=== PATIENT | female | born 1970 | race African-American/Black ===

== ENCOUNTER 2017-03-10 06:08 | Inpatient (IN) | payer MEDICARE, MEDICAID ==
[~2017-03-10] VITALS: Ht 180.3 cm; Wt 63.5 kg
[2017-03-10 09:16] LABS: BASOPHILS % 0.9 % (0.0-2.0); EOSINOPHILS % 2.7 % (0.0-5.0); HEMATOCRIT. 40.2 % (36.0-48.0); HEMOGLOBIN. 12.9 g/dL (12.0-16.0); LYMPHOCYTES % 24.6 % (20.0-50.0); MEAN CORPUSCULAR VOLUME 99.7 fL (81.0-99.0); MEAN PLATELET VOLUME 8.9 fl (7.4-10.4); MONOCYTES % 5.2 % (2.0-8.0); NEUTROPHILS % 66.6 % (40.0-76.0); PLATELET 335 x1000/uL (130-400); RED BLOOD CELL COUNT 4.03 mill/uL (4.2-5.4); RED CELL DISTRIBUTION WIDTH 19.7 % (11.6-14.6)
[2017-03-10 09:22] LABS: CHLORIDE 98 mEq/L (98-107)
[2017-03-10 09:25] LABS: INR 1.1; PARTIAL THROMBOPLASTIN TIME 24.2 sec (23.4-31.0); PROTHROMBIN TIME 11.3 sec (9.4-11.6)
[2017-03-10 09:30] LABS: CARBON DIOXIDE 29 mEq/L (21-32)
[2017-03-10] MEDS ORDERED: LIDOCAINE HCL 1% 20ML VIAL (Pyxis) INJ ONE (10:22)
[2017-03-10] MEDS ORDERED: SODIUM BICARBONATE 4% (2.4MEQ) 5ML VIAL IV ONE (10:23)
[2017-03-10] MEDS ORDERED: HYDROCODONE/ACETAMINOPHEN 5/325MG TABLET PO ONE (13:15)
[2017-03-10] MEDS ORDERED: DOCUSATE SODIUM 100MG CAPSULE PO PRN (18:00)
[2017-03-10] MEDS ORDERED: ONDANSETRON HCL 4MG/2ML VIAL IV PRN (18:00)
[2017-03-10] MEDS ORDERED: ACETAMINOPHEN 325MG TABLET PO PRN (18:00)
[2017-03-10] MEDS ORDERED: MAGNESIUM/ALUMINUM HYDROXIDE/SIMETHICONE 30ML UDC PO PRN (18:00)
[2017-03-10 18:43] VITALS: BP 188/90
[2017-03-10 20:00] VITALS: BP 187/77
[2017-03-10] MEDS ORDERED: ENOXAPARIN 30MG/0.3ML SYR SUBCUT SCH (20:00)
[2017-03-10 20:21] VITALS: BP 187/77
[2017-03-10] MEDS ORDERED: HYDR-4135 PO (20:30)
[2017-03-10] MEDS ORDERED: ASPI-864 PO (20:31)
[2017-03-10] MEDS ORDERED: METO25TA6 PO (20:32)
[2017-03-10] MEDS ORDERED: CHOL100046 PO (20:33)
[2017-03-10] MEDS ORDERED: DEXTROSE 50% WATER 50ML SYRINGE IV PRN (20:45)
[2017-03-10] MEDS: HYDRALAZINE HCL 50MG TABLET PO SCH (21:37)
[2017-03-10] MEDS: CLONIDINE 0.1MG TABLET PO PRN (21:37)
[2017-03-10] MEDS: BLOOD SUGAR DIAGNOSTIC STRIP TEST SCH (21:45)
[2017-03-10] MEDS: INSULIN LISPRO 100 UNITS/ML SUBCUT SCH (21:45)
[2017-03-11] MEDS: CLONIDINE 0.1MG TABLET PO PRN ×2 (03:27→12:13)
[2017-03-11] MEDS ORDERED: HYDROCODONE/ACETAMINOPHEN 5/325MG TABLET PO PRN (03:45)
[2017-03-11 06:32] LABS: BASOPHILS % 0.7 % (0.0-2.0); HEMATOCRIT. 33.6 % (36.0-48.0); HEMOGLOBIN. 10.9 g/dL (12.0-16.0); LYMPHOCYTES % 18.8 % (20.0-50.0); MEAN CORPUSCULAR HEMOGLOBIN 32.2 pg (28.0-32.0); MEAN CORPUSCULAR VOLUME 98.9 fL (81.0-99.0); MEAN PLATELET VOLUME 9.1 fl (7.4-10.4); NEUTROPHILS % 71.5 % (40.0-76.0); PLATELET 255 x1000/uL (130-400); RED CELL DISTRIBUTION WIDTH 19.5 % (11.6-14.6)
[2017-03-11] MEDS: HYDRALAZINE HCL 50MG TABLET PO SCH ×3 (06:41→20:45)
[2017-03-11] MEDS: BLOOD SUGAR DIAGNOSTIC STRIP TEST SCH ×4 (07:52→20:47)
[2017-03-11] MEDS: INSULIN LISPRO 100 UNITS/ML SUBCUT SCH ×4 (07:52→21:02)
[2017-03-11 08:00] VITALS: BP 147/74
[2017-03-11] MEDS: METOPROLOL TARTRATE 25MG TABLET PO SCH (09:37)
[2017-03-11] MEDS: AMLODIPINE 5MG TABLET PO SCH ×2 (09:37→20:40)
[2017-03-11 12:00] VITALS: BP 178/76
[2017-03-11 16:00] VITALS: BP 122/83
[2017-03-11 20:00] VITALS: BP 176/89
[2017-03-11 22:00] VITALS: BP 159/82
[2017-03-12] VITALS (21 sets, daily range): BP systolic 121–206; BP diastolic 61–96
[2017-03-12] MEDS: HYDRALAZINE HCL 50MG TABLET PO SCH ×3 (05:09→22:53)
[2017-03-12] MEDS: BLOOD SUGAR DIAGNOSTIC STRIP TEST SCH ×4 (05:47→21:00)
[2017-03-12] MEDS: INSULIN LISPRO 100 UNITS/ML SUBCUT SCH ×4 (08:03→21:22)
[2017-03-12] MEDS: METOPROLOL TARTRATE 25MG TABLET PO SCH (08:28)
[2017-03-12] MEDS: AMLODIPINE 5MG TABLET PO SCH ×2 (08:28→20:56)
[2017-03-12] MEDS ORDERED: LIDOCAINE HCL 1% 20ML VIAL (Pyxis) INJ ONE (08:35)
[2017-03-12] MEDS ORDERED: SODIUM BICARBONATE 4% (2.4MEQ) 5ML VIAL IV ONE (08:35)
[2017-03-12] MEDS ORDERED: HEPARIN 1000 UNITS/ML 10ML ONE (08:36)
[2017-03-12] MEDS ORDERED: CEFAZOLIN 1000MG PREMIX 50 ML IV ONE (08:55)
[2017-03-12] MEDS ORDERED: IOHEXOL-300 100 ML BOTTLE ONE (08:58)
[2017-03-12] MEDS: CHOLECALCIFEROL (D3) 1000 UNIT TABLET PO SCH (09:00)
[2017-03-12] MEDS ORDERED: FENTANYL CITRATE/PF 50MCG/ML 2ML VIAL IV NR (09:15)
[2017-03-12] MEDS ORDERED: MIDAZOLAM HCL 5 MG/5 ML VIAL IV NR (09:20)
[2017-03-12] MEDS ORDERED: FENTANYL CITRATE/PF 50MCG/ML 2ML VIAL ONE (09:23)
[2017-03-12] MEDS ORDERED: MIDAZOLAM HCL 2 MG/2 ML VIAL ONE (09:23)
[2017-03-12] MEDS ORDERED: CEFAZOLIN 1000MG PREMIX 50 ML IV SCH (10:15)
[2017-03-12] MEDS ORDERED: CEFAZOLIN 1000MG PREMIX 50 ML IV NR (10:15)
[2017-03-13] VITALS: BP 156/75
[2017-03-13 04:00] VITALS: BP 156/71
[2017-03-13] MEDS: BLOOD SUGAR DIAGNOSTIC STRIP TEST SCH ×2 (06:05→12:40)
[2017-03-13] MEDS: HYDRALAZINE HCL 50MG TABLET PO SCH ×2 (06:05→15:00)
[2017-03-13 06:33] LABS: EOSINOPHILS % 2.7 % (0.0-5.0); HEMATOCRIT. 37.2 % (36.0-48.0); HEMOGLOBIN. 12.4 g/dL (12.0-16.0); LYMPHOCYTES % 25.3 % (20.0-50.0); MEAN CORPUSCULAR HEMOGLOBIN 33.1 pg (28.0-32.0); MEAN CORPUSCULAR VOLUME 98.9 fL (81.0-99.0); MEAN PLATELET VOLUME 9.2 fl (7.4-10.4); MONOCYTES % 8.9 % (2.0-8.0); NEUTROPHILS % 62.1 % (40.0-76.0); PLATELET 189 x1000/uL (130-400); RED BLOOD CELL COUNT 3.76 mill/uL (4.2-5.4); RED CELL DISTRIBUTION WIDTH 18.5 % (11.6-14.6)
[2017-03-13 08:00] VITALS: BP 190/77
[2017-03-13] MEDS: METOPROLOL TARTRATE 25MG TABLET PO SCH (08:18)
[2017-03-13] MEDS: AMLODIPINE 5MG TABLET PO SCH (08:19)
[2017-03-13] MEDS: CHOLECALCIFEROL (D3) 1000 UNIT TABLET PO SCH (09:36)
[2017-03-13] MEDS: INSULIN LISPRO 100 UNITS/ML SUBCUT SCH ×2 (09:37→13:10)
[2017-03-13 12:00] VITALS: BP 191/100
[2017-03-13 14:18] VITALS: BP 158/72
[2017-03-13 16:00] VITALS: BP 158/70
== END 2017-03-13 17:30 | disposition home or self-care (01) | DRG 252 ==
LOC: ER 06:08 → 7WST 10:17 → ENRESERV 16:28 → SUPCPDRO 17:42
PROVIDERS: ADMIT Internal Medicine Nephrology; ATTEND Internal Medicine Nephrology
PROC: 02HV33Z Insertion of Infusion Device into Superior Vena Cava, Percutaneous Approach (ICD-10-PCS; principal; 2017-03-10)
PROC: B5181ZA Fluoroscopy of Superior Vena Cava using Low Osmolar Contrast, Guidance (ICD-10-PCS; 2017-03-10)
PROC: 5A1D70Z Performance of Urinary Filtration, Intermittent, Less than 6 Hours Per Day (ICD-10-PCS; 2017-03-10)
PROC: 5A1D70Z Performance of Urinary Filtration, Intermittent, Less than 6 Hours Per Day (ICD-10-PCS; 2017-03-12)
PROC: 03C83ZZ Extirpation of Matter from Left Brachial Artery, Percutaneous Approach (ICD-10-PCS; 2017-03-12)
PROC: 03783ZZ Dilation of Left Brachial Artery, Percutaneous Approach (ICD-10-PCS; 2017-03-12)
PROC: 5A1D70Z Performance of Urinary Filtration, Intermittent, Less than 6 Hours Per Day (ICD-10-PCS; 2017-03-13)
DX: T82.868A Thrombosis due to vascular prosthetic devices, implants and grafts, initial encounter (principal); N18.6 End stage renal disease; E11.22 Type 2 diabetes mellitus with diabetic chronic kidney disease; I12.0 Hypertensive chronic kidney disease with stage 5 chronic kidney disease or end stage renal disease; Y83.2 Surgical operation with anastomosis, bypass or graft as the cause of abnormal reaction of the patient, or of later complication, without mention of misadventure at the time of the procedure; E87.5 Hyperkalemia; E11.65 Type 2 diabetes mellitus with hyperglycemia; Z88.8 Allergy status to other drugs, medicaments and biological substances; Z99.2 Dependence on renal dialysis; Z98.891 History of uterine scar from previous surgery; Y92.89 Other specified places as the place of occurrence of the external cause
CPT/HCPCS: 36415; 36556; 36905; 76937; 77001; 80048; 80053; 82962; 85025; 85610; 85730; 93005; 99285; C1725; C1752; C1769; C1887; C2630; J0690; J1642; J1644; J1650; J1815; J2250; J3010; J3490; J7030; L8514; Q9967

== ENCOUNTER 2017-06-18 08:44 | Emergency (ER) | payer MEDICARE, MEDICAID ==
[~2017-06-18] VITALS: Ht 180.3 cm; Wt 73.1 kg
[2017-06-18] VITALS (18 sets, daily range): BP systolic 116–191; BP diastolic 67–98
[~2017-06-18 08:44] MED LIST: ASPI-864 PO; CHOL100046 PO; HYDR-4135 PO; METO25TA6 PO
[2017-06-18 09:55] LABS: EOSINOPHILS % 2.7 % (0.0-5.0); HEMATOCRIT. 32.8 % (36.0-48.0); HEMOGLOBIN. 11.1 g/dL (12.0-16.0); LYMPHOCYTES % 27.2 % (20.0-50.0); MEAN CORPUSCULAR HEMOGLOBIN 33.1 pg (28.0-32.0); MEAN PLATELET VOLUME 8.8 fl (7.4-10.4); MONOCYTES % 7.3 % (2.0-8.0); NEUTROPHILS % 61.8 % (40.0-76.0); PLATELET 294 x1000/uL (130-400); RED BLOOD CELL COUNT 3.35 mill/uL (4.2-5.4); RED CELL DISTRIBUTION WIDTH 16.5 % (11.6-14.6)
[2017-06-18 10:00] LABS: INR 1.1; PARTIAL THROMBOPLASTIN TIME 22.4 sec (23.4-31.0); PROTHROMBIN TIME 11.4 sec (9.4-11.6)
[2017-06-18 10:06] LABS: PHOSPHORUS 2.7 mg/dL (2.5-4.9)
[2017-06-18] MEDS ORDERED: CEFAZOLIN 1000MG PREMIX 50 ML IV ONE ×2 (10:15→10:27)
[2017-06-18] MEDS ORDERED: LIDOCAINE HCL/PF 1% 10 MG/ML 5ML VIAL ONE (10:26)
[2017-06-18] MEDS ORDERED: HEPARIN 1000 UNITS/ML 10ML ONE (10:26)
[2017-06-18] MEDS ORDERED: SODIUM BICARBONATE 4% (2.4MEQ) 5ML VIAL IV ONE (10:26)
[2017-06-18] MEDS ORDERED: FENTANYL CITRATE/PF 50MCG/ML 2ML VIAL ONE (10:27)
[2017-06-18] MEDS ORDERED: IOHEXOL-300 100 ML BOTTLE ONE (10:45)
[2017-06-18] MEDS ORDERED: MIDAZOLAM HCL 2 MG/2 ML VIAL ONE (10:55)
[2017-06-18] MEDS ORDERED: HEPARIN 5000 UNITS/ML VIAL IV ONE (11:15)
[2017-06-18] MEDS ORDERED: HEPARIN 1000 UNITS/ML 10ML IV ONE (11:15)
[2017-06-18] MEDS ORDERED: ONDANSETRON HCL 4MG/2ML VIAL ONE (11:27)
[2017-06-18] MEDS ORDERED: FENTANYL CITRATE/PF 50MCG/ML 2ML VIAL IV ONE (11:30)
[2017-06-18] MEDS ORDERED: ONDANSETRON HCL 4MG/2ML VIAL IV ONE (11:30)
== END 2017-06-18 12:27 | disposition home or self-care (01) ==
LOC: ER 08:48
DX: T82.858A Stenosis of other vascular prosthetic devices, implants and grafts, initial encounter (principal); N17.9 Acute kidney failure, unspecified; E11.22 Type 2 diabetes mellitus with diabetic chronic kidney disease; E11.65 Type 2 diabetes mellitus with hyperglycemia; I12.0 Hypertensive chronic kidney disease with stage 5 chronic kidney disease or end stage renal disease; D63.1 Anemia in chronic kidney disease; R00.1 Bradycardia, unspecified; N18.6 End stage renal disease; Z79.82 Long term (current) use of aspirin; Z99.2 Dependence on renal dialysis; Z79.84 Long term (current) use of oral hypoglycemic drugs; Z98.890 Other specified postprocedural states; Y84.1 Kidney dialysis as the cause of abnormal reaction of the patient, or of later complication, without mention of misadventure at the time of the procedure; Y92.018 Other place in single-family (private) house as the place of occurrence of the external cause
CPT/HCPCS: 36415; 36905; 71045; 80048; 81025; 82962; 83735; 84100; 85025; 85610; 85730; 93005; 96365; 96375; 99285; C1725; C1766; C1769; C2630; J0690; J1644; J2405; J3010; J3490; J7040; Q9967; J2250

== ENCOUNTER 2017-07-04 14:10 | Emergency (ER) | payer MEDICARE, MEDICAID ==
[~2017-07-04] VITALS: Ht 180.3 cm; Wt 71.0 kg
[2017-07-04 14:31] VITALS: BP 125/45
== END 2017-07-04 17:43 | disposition home or self-care (01) ==
LOC: ER 14:25
DX: Z48.02 Encounter for removal of sutures (principal); I12.0 Hypertensive chronic kidney disease with stage 5 chronic kidney disease or end stage renal disease; E11.22 Type 2 diabetes mellitus with diabetic chronic kidney disease; N18.6 End stage renal disease; Z99.2 Dependence on renal dialysis; Z79.82 Long term (current) use of aspirin
CPT/HCPCS: 99281

== ENCOUNTER → 2017-09-18 | Outpatient (CLI) | payer MEDICARE, MEDICAID | END | disposition home or self-care (01) | LOC: MAMMO 09:43 | PROVIDERS: ATTEND Internal Medicine Nephrology | DX: Z12.31 Encounter for screening mammogram for malignant neoplasm of breast (principal) | CPT/HCPCS: 77067 ==

== ENCOUNTER 2017-10-13 13:50 | Emergency (ER) | payer MEDICARE, MEDICAID ==
[~2017-10-13] VITALS: Ht 180.3 cm; Wt 70.0 kg
[2017-10-13] MEDS ORDERED: HYDROCODONE/ACETAMINOPHEN 5/325MG TABLET PO ONE (16:30)
[2017-10-13] MEDS ORDERED: AMOXICILLIN/POTASSIUM CLAVULANATE 875/125MG TAB PO ONE (16:30)
[2017-10-13] MEDS ORDERED: IBUPROFEN 600MG TABLET PO ONE (16:30)
[2017-10-13 17:51] VITALS: BP 147/70
== END 2017-10-13 17:53 | disposition home or self-care (01) ==
LOC: ER 13:50
DX: K04.7 Periapical abscess without sinus (principal); R68.84 Jaw pain; E11.22 Type 2 diabetes mellitus with diabetic chronic kidney disease; N18.6 End stage renal disease; Z99.2 Dependence on renal dialysis; Z88.8 Allergy status to other drugs, medicaments and biological substances
CPT/HCPCS: 99284

== ENCOUNTER 2017-11-19 08:25 | Emergency (ER) | payer MEDICARE, MEDICAID ==
[~2017-11-19] VITALS: Ht 180.3 cm; Wt 74.3 kg
[2017-11-19 09:36] VITALS: BP 161/46
== END 2017-11-19 14:30 | disposition left against medical advice (07) ==
LOC: ER 13:02
DX: Z53.21 Procedure and treatment not carried out due to patient leaving prior to being seen by health care provider (principal)

== ENCOUNTER 2018-03-28 04:07 | Inpatient (IN) | payer MEDICARE, MEDICAID ==
[~2018-03-28] VITALS: Ht 180.3 cm; Wt 77.1 kg
[2018-03-28] MEDS ORDERED: ONDANSETRON HCL 4MG/2ML INJ IV STA (05:29)
[2018-03-28 06:27] LABS: CHLORIDE 95 mEq/L (98-107)
[2018-03-28 06:39] LABS: BASOPHILS % 0.4 % (0.0-2.0); EOSINOPHILS % 1.4 % (0.0-5.0); HEMATOCRIT. 26.1 % (36.0-48.0); LYMPHOCYTES % 15.5 % (20.0-50.0); MEAN CORPUSCULAR HEMOGLOBIN 33.5 pg (28.0-32.0); MEAN PLATELET VOLUME 10.2 fl (7.4-10.4); MONOCYTES % 6.4 % (2.0-8.0); NEUTROPHILS % 76.3 % (40.0-76.0); PLATELET 343 x1000/uL (130-400); RED BLOOD CELL COUNT 2.69 mill/uL (4.2-5.4); RED CELL DISTRIBUTION WIDTH 19.5 % (11.6-14.6)
[2018-03-28 07:11] LABS: HCG SCREEN NEGATIVE
[2018-03-28] MEDS ORDERED: FUROSEMIDE 100MG/10ML VIAL IV STA (07:21)
[2018-03-28] MEDS ORDERED: INSULIN REGULAR (HUMULIN R) 300UNITS/3ML IV ONE (07:30)
[2018-03-28] MEDS ORDERED: DEXTROSE 50% WATER 50ML SYRINGE IV ONE (07:30)
[2018-03-28] MEDS ORDERED: ALBUTEROL (0.083%) 2.5MG/3ML NEB HHN ONE (07:30)
[2018-03-28] MEDS ORDERED: SODIUM BICARBONATE 8.4% 1 MEQ/ML 50ML SYR IV ONE (07:30)
[2018-03-28] MEDS ORDERED: ENOXAPARIN 40MG/0.4ML SYR SUBCUT SCH (09:00)
[2018-03-28] MEDS ORDERED: DOCUSATE SODIUM 100MG CAPSULE PO PRN (09:00)
[2018-03-28] MEDS ORDERED: HYDROCODONE/ACETAMINOPHEN 5/325MG TABLET PO PRN (09:00)
[2018-03-28] MEDS ORDERED: NA PHOS,M-B/NA PHOS,DI-BA ENEMA 118ML PR PRN (09:00)
[2018-03-28] MEDS ORDERED: ASPIRIN 81MG EC TABLET PO SCH (09:00)
[2018-03-28] MEDS ORDERED: MAGNESIUM/ALUMINUM HYDROXIDE/SIMETHICONE 30ML UDC PO PRN (09:00)
[2018-03-28] MEDS ORDERED: IPRATROPIUM/ALBUTEROL 0.5-3(2.5)MG/3ML NEB INH PRN (09:00)
[2018-03-28] MEDS ORDERED: ACETAMINOPHEN 325MG TABLET PO PRN (09:00)
[2018-03-28] MEDS ORDERED: DIPHENHYDRAMINE 50MG/ML VIAL IV PRN (09:00)
[2018-03-28] MEDS ORDERED: MORPHINE SULFATE 2 MG/ML CPJ (NOT FOR IM USE) IV PRN (09:00)
[2018-03-28] MEDS ORDERED: CLONIDINE 0.1MG TABLET PO PRN (09:00)
[2018-03-28] MEDS ORDERED: GUAIFENESIN 200MG/10ML SUGAR FREE UDC PO PRN (09:00)
[2018-03-28] MEDS ORDERED: LORAZEPAM 2MG/ML CPJ IV PRN (09:00)
[2018-03-28] MEDS ORDERED: HYDRALAZINE HCL 50MG TABLET PO NR (17:15)
[2018-03-28] MEDS ORDERED: AMLODIPINE 5MG TABLET PO NR (17:15)
[2018-03-28] MEDS ORDERED: METOPROLOL TARTRATE 25MG TABLET PO NR (17:15)
[2018-03-28] MEDS ORDERED: LOSA100T14 PO (17:34)
[2018-03-28 19:35] LABS: CHLORIDE 94 mEq/L (98-107)
[2018-03-28 21:00] VITALS: BP 181/55
[2018-03-28] MEDS ORDERED: HYDRALAZINE HCL 50MG TABLET PO SCH (22:00)
[2018-03-28] MEDS ORDERED: DEXTROSE 50% WATER 50ML SYRINGE IV PRN (22:15)
[2018-03-28] MEDS: ENOXAPARIN 30MG/0.3ML SYR SUBCUT SCH (22:36)
[2018-03-28] MEDS: HYDRALAZINE HCL 50MG TABLET PO SCH (22:36)
[2018-03-28] MEDS: ASPIRIN 81MG EC TABLET PO SCH (22:36)
[2018-03-28] MEDS ORDERED: FERR325T6 MT (22:53)
[2018-03-28] MEDS ORDERED: INSULIN R SUBCUT (22:53)
[2018-03-28] MEDS ORDERED: CALCIUM ACETATE MT (22:53)
[2018-03-28] MEDS ORDERED: NIFE90TA34 MT (22:53)
[2018-03-29 00:29] VITALS: BP 150/52
[2018-03-29] MEDS ORDERED: MORPHINE SULFATE 4 MG/ML CPJ (NOT FOR IM USE) IV PRN (01:00)
[2018-03-29 04:00] VITALS: BP 126/66
[2018-03-29] MEDS: HYDRALAZINE HCL 50MG TABLET PO SCH ×2 (05:32→21:31)
[2018-03-29] MEDS: BLOOD SUGAR DIAGNOSTIC STRIP TEST SCH ×4 (06:24→20:12)
[2018-03-29] MEDS: INSULIN LISPRO 100 UNITS/ML SUBCUT SCH ×4 (07:50→21:00)
[2018-03-29 08:00] VITALS: BP 165/59
[2018-03-29] MEDS ORDERED: AMLODIPINE 5MG TABLET PO SCH ×2 (09:00)
[2018-03-29] MEDS ORDERED: METOPROLOL TARTRATE 25MG TABLET PO SCH (09:00)
[2018-03-29] MEDS: ASPIRIN 81MG EC TABLET PO SCH (09:53)
[2018-03-29] MEDS: METOPROLOL TARTRATE 25MG TABLET PO SCH ×2 (09:53→20:12)
[2018-03-29 11:55] VITALS: BP 144/48
[2018-03-29 15:58] VITALS: BP 157/70
[2018-03-29] MEDS: NIFEDIPINE XL 90MG TAB PO SCH (17:30)
[2018-03-29 20:00] VITALS: BP 160/63
[2018-03-29] MEDS: ONDANSETRON HCL 4MG/2ML INJ IV PRN (20:11)
[2018-03-29] MEDS: ENOXAPARIN 30MG/0.3ML SYR SUBCUT SCH (21:31)
[2018-03-30 00:07] VITALS: BP 144/57
[2018-03-30 06:00] VITALS: BP 129/56
[2018-03-30] MEDS: HYDRALAZINE HCL 50MG TABLET PO SCH ×3 (06:10→21:30)
[2018-03-30] MEDS: BLOOD SUGAR DIAGNOSTIC STRIP TEST SCH ×4 (06:28→21:20)
[2018-03-30 06:59] LABS: BASOPHILS % 1.3 % (0.0-2.0); EOSINOPHILS % 4.2 % (0.0-5.0); HEMATOCRIT. 27.6 % (36.0-48.0); HEMOGLOBIN. 9.3 g/dL (12.0-16.0); LYMPHOCYTES % 32.2 % (20.0-50.0); MEAN CORPUSCULAR HEMOGLOBIN 33.7 pg (28.0-32.0); MEAN CORPUSCULAR VOLUME 99.6 fL (81.0-99.0); MEAN PLATELET VOLUME 9.5 fl (7.4-10.4); MONOCYTES % 7.4 % (2.0-8.0); NEUTROPHILS % 54.9 % (40.0-76.0); PLATELET 301 x1000/uL (130-400); RED BLOOD CELL COUNT 2.77 mill/uL (4.2-5.4); RED CELL DISTRIBUTION WIDTH 17.1 % (11.6-14.6)
[2018-03-30 08:00] VITALS: BP 158/70
[2018-03-30 08:24] LABS: PHOSPHORUS 4.6 mg/dL (2.5-4.9)
[2018-03-30 12:00] VITALS: BP 112/66
[2018-03-30] MEDS ORDERED: ONDANSETRON HCL 4MG/2ML INJ IV PRN (12:00)
[2018-03-30] MEDS: ONDANSETRON HCL 4MG/2ML INJ IV PRN (12:35)
[2018-03-30] MEDS: INSULIN LISPRO 100 UNITS/ML SUBCUT SCH ×4 (12:36→21:57)
[2018-03-30 16:00] VITALS: BP 154/63
[2018-03-30] MEDS: METOPROLOL TARTRATE 25MG TABLET PO SCH ×2 (16:39→21:00)
[2018-03-30] MEDS: LOSARTAN POTASSIUM 100 MG TABLET PO SCH (16:39)
[2018-03-30] MEDS: ASPIRIN 81MG EC TABLET PO SCH (16:40)
[2018-03-30] MEDS: NIFEDIPINE XL 90MG TAB PO SCH (16:40)
[2018-03-30] MEDS ORDERED: FLUCONAZOLE 150MG TABLET PO NR (17:00)
[2018-03-30 20:00] VITALS: BP 99/62
[2018-03-30] MEDS: ENOXAPARIN 30MG/0.3ML SYR SUBCUT SCH (21:58)
[2018-03-31] VITALS (7 sets, daily range): BP systolic 109–151; BP diastolic 49–80
[2018-03-31] MEDS: BLOOD SUGAR DIAGNOSTIC STRIP TEST SCH ×3 (05:55→21:00)
[2018-03-31] MEDS: HYDRALAZINE HCL 50MG TABLET PO SCH ×3 (05:58→23:02)
[2018-03-31 07:21] LABS: BASOPHILS % 1.6 % (0.0-2.0); EOSINOPHILS % 3.7 % (0.0-5.0); HEMATOCRIT. 24.7 % (36.0-48.0); HEMOGLOBIN. 8.1 g/dL (12.0-16.0); LYMPHOCYTES % 23.3 % (20.0-50.0); MEAN CORPUSCULAR HEMOGLOBIN 33.2 pg (28.0-32.0); MEAN CORPUSCULAR VOLUME 100.8 fL (81.0-99.0); MEAN PLATELET VOLUME 9.4 fl (7.4-10.4); MONOCYTES % 10.1 % (2.0-8.0); NEUTROPHILS % 61.3 % (40.0-76.0); PLATELET 243 x1000/uL (130-400); RED BLOOD CELL COUNT 2.45 mill/uL (4.2-5.4)
[2018-03-31] MEDS: INSULIN LISPRO 100 UNITS/ML SUBCUT SCH ×3 (07:50→21:00)
[2018-03-31 07:58] LABS: CHLORIDE 104 mEq/L (98-107)
[2018-03-31] MEDS: ASPIRIN 81MG EC TABLET PO SCH (09:51)
[2018-03-31] MEDS: NIFEDIPINE XL 90MG TAB PO SCH (09:51)
[2018-03-31] MEDS: LOSARTAN POTASSIUM 100 MG TABLET PO SCH (09:51)
[2018-03-31] MEDS: METOPROLOL TARTRATE 25MG TABLET PO SCH ×2 (09:51→23:02)
[2018-03-31] MEDS: ENOXAPARIN 30MG/0.3ML SYR SUBCUT SCH (23:03)
[2018-04-01] VITALS: BP 155/61
[2018-04-01 04:56] LABS: *BARBITURATES SCREEN URINE NEGATIVE (NEGATIVE); *BENZODIAZEPINES SCREEN URINE NEGATIVE (NEGATIVE); *COCAINE SCREEN URINE NEGATIVE (NEGATIVE)
[2018-04-01 04:57] LABS: *AMPHETAMINES SCREEN URINE NEGATIVE (NEGATIVE); CANNABINOID URINE SCREEN NEGATIVE (NEGATIVE); METHADONE URINE SCREEN NEGATIVE (NEGATIVE); PHENCYCLIDINE URINE SCREEN NEGATIVE (NEGATIVE)
[2018-04-01 05:27] LABS: OPIATES URINE SCREEN PRESUMTIVE POSITIVE (NEGATIVE)
[2018-04-01] MEDS: HYDRALAZINE HCL 50MG TABLET PO SCH ×2 (06:35→14:47)
[2018-04-01] MEDS: BLOOD SUGAR DIAGNOSTIC STRIP TEST SCH ×2 (06:35→13:11)
[2018-04-01] MEDS: INSULIN LISPRO 100 UNITS/ML SUBCUT SCH ×2 (07:50→13:20)
[2018-04-01 08:00] VITALS: BP 129/69
[2018-04-01 09:29] LABS: BASOPHILS % 1.5 % (0.0-2.0); EOSINOPHILS % 3.8 % (0.0-5.0); HEMATOCRIT. 28.4 % (36.0-48.0); HEMOGLOBIN. 9.3 g/dL (12.0-16.0); LYMPHOCYTES % 26.9 % (20.0-50.0); MEAN CORPUSCULAR HEMOGLOBIN 33.2 pg (28.0-32.0); MEAN CORPUSCULAR VOLUME 101.5 fL (81.0-99.0); MONOCYTES % 6.3 % (2.0-8.0); NEUTROPHILS % 61.5 % (40.0-76.0); PLATELET 299 x1000/uL (130-400); RED CELL DISTRIBUTION WIDTH 17.1 % (11.6-14.6)
[2018-04-01] MEDS: LOSARTAN POTASSIUM 100 MG TABLET PO SCH (09:56)
[2018-04-01] MEDS: NIFEDIPINE XL 90MG TAB PO SCH (09:56)
[2018-04-01] MEDS: ASPIRIN 81MG EC TABLET PO SCH (09:56)
[2018-04-01] MEDS: METOPROLOL TARTRATE 25MG TABLET PO SCH (09:57)
[2018-04-01 12:00] VITALS: BP 156/61
[2018-04-01 13:35] VITALS: BP 156/61
[2018-04-01 16:00] VITALS: BP 158/66
[2018-04-02] MEDS ORDERED: EPOETIN ALFA 4000UNITS/ML VIAL SUBCUT SCH (21:00)
== END 2018-04-01 17:15 | disposition home or self-care (01) | DRG 640 ==
LOC: ER 04:07 → 6WST 07:53 → EDBEDREQTM 07:56 → EDBEDREQ 07:56 → ENRESERV 20:04 → ER 20:52
PROVIDERS: ADMIT Internal Medicine; ATTEND Internal Medicine
PROC: 5A1D70Z Performance of Urinary Filtration, Intermittent, Less than 6 Hours Per Day (ICD-10-PCS; principal; 2018-03-31)
DX: E87.5 Hyperkalemia (principal); N18.6 End stage renal disease; I13.2 Hypertensive heart and chronic kidney disease with heart failure and with stage 5 chronic kidney disease, or end stage renal disease; K31.84 Gastroparesis; E87.1 Hypo-osmolality and hyponatremia; E11.43 Type 2 diabetes mellitus with diabetic autonomic (poly)neuropathy; Z99.2 Dependence on renal dialysis; D63.1 Anemia in chronic kidney disease; E11.22 Type 2 diabetes mellitus with diabetic chronic kidney disease; I25.10 Atherosclerotic heart disease of native coronary artery without angina pectoris; I50.9 Heart failure, unspecified; Z79.4 Long term (current) use of insulin; Z79.82 Long term (current) use of aspirin; Z82.49 Family history of ischemic heart disease and other diseases of the circulatory system; Z98.891 History of uterine scar from previous surgery; Z79.84 Long term (current) use of oral hypoglycemic drugs
CPT/HCPCS: 36415; 71045; 80048; 80061; 80305; 82962; 83036; 83605; 83735; 83880; 84100; 84484; 84703; 93005; 93306; 96374; 96375; 99285; J1650; J1815; J1940; J2405; J3490

== ENCOUNTER 2018-06-18 07:57 | Inpatient (IN) | payer MEDICARE, MEDICAID ==
[~2018-06-18] VITALS: Ht 180.3 cm; Wt 80.8 kg
[~2018-06-18 07:57] MED LIST changes: +CALCIUM ACETATE MT; +FERR325T6 MT; +INSULIN R SUBCUT; +LOSA100T14 PO; +NIFE90TA34 MT
[2018-06-18] MEDS ORDERED: HYDRALAZINE 20MG/ML VIAL IV ONE ×2 (08:30→13:30)
[2018-06-18 08:51] LABS: BASOPHILS % 0.8 % (0.0-2.0); EOSINOPHILS % 0.3 % (0.0-5.0); HEMATOCRIT. 34.5 % (36.0-48.0); HEMOGLOBIN. 11.4 g/dL (12.0-16.0); LYMPHOCYTES % 14.4 % (20.0-50.0); MEAN CORPUSCULAR HEMOGLOBIN 32.4 pg (28.0-32.0); MEAN CORPUSCULAR VOLUME 97.9 fL (81.0-99.0); MEAN PLATELET VOLUME 9.6 fl (7.4-10.4); MONOCYTES % 4.9 % (2.0-8.0); NEUTROPHILS % 79.6 % (40.0-76.0); PLATELET 259 x1000/uL (130-400); RED BLOOD CELL COUNT 3.52 mill/uL (4.2-5.4)
[2018-06-18 08:57] LABS: CHLORIDE 104 mEq/L (98-107)
[2018-06-18 08:58] LABS: INR 1.1; PROTHROMBIN TIME 11.8 sec (9.6-11.0)
[2018-06-18] MEDS ORDERED: IBUPROFEN 600MG TABLET PO PRN (13:30)
[2018-06-18] MEDS ORDERED: DOCUSATE SODIUM 100MG CAPSULE PO PRN (15:00)
[2018-06-18] MEDS ORDERED: DIPHENHYDRAMINE 50MG/ML VIAL IV PRN (15:00)
[2018-06-18] MEDS ORDERED: GUAIFENESIN 200MG/10ML SUGAR FREE UDC PO PRN (15:00)
[2018-06-18] MEDS ORDERED: ACETAMINOPHEN 325MG TABLET PO PRN (15:00)
[2018-06-18] MEDS ORDERED: HYDROCODONE/ACETAMINOPHEN 5/325MG TABLET PO PRN (15:00)
[2018-06-18 15:55] LABS: CLARITY URINE CLEAR (CLEAR); COLOR URINE YELLOW (YELLOW); KETONES URINE NEGATIVE (NEGATIVE); LEUKOCYTE ESTERASE URINE NEGATIVE (NEGATIVE); NITRITE URINE NEGATIVE (NEGATIVE); OCCULT BLOOD URINE TRACE (NEGATIVE); PH URINE 7.5 (4.5-8.0); PROTEIN URINE 3+ (NEGATIVE); SPECIFIC GRAVITY URINE 1.013 (1.005-1.030); UROBILINOGEN URINE 0.2 E.U./dL (0.2-1.0)
[2018-06-18] MEDS ORDERED: HYDRALAZINE 20MG/ML VIAL IV NR (18:43)
[2018-06-18] MEDS: AMLODIPINE 10MG TABLET PO SCH (20:30)
[2018-06-18] MEDS: ONDANSETRON HCL 4MG/2ML INJ IV PRN (20:40)
[2018-06-18] MEDS: HYDRALAZINE HCL 50MG TABLET PO SCH (22:20)
[2018-06-19] VITALS (12 sets, daily range): BP systolic 152–211; BP diastolic 64–105
[2018-06-19] MEDS ORDERED: INSU100V3 SUBCUT (01:15)
[2018-06-19] MEDS: ONDANSETRON HCL 4MG/2ML INJ IV PRN ×3 (01:26→20:12)
[2018-06-19] MEDS ORDERED: DEXTROSE 50% WATER 50ML SYRINGE IV PRN (01:45)
[2018-06-19] MEDS: BLOOD SUGAR DIAGNOSTIC STRIP TEST SCH ×4 (07:40→20:22)
[2018-06-19] MEDS: AMLODIPINE 10MG TABLET PO SCH (08:34)
[2018-06-19] MEDS: HYDRALAZINE HCL 50MG TABLET PO SCH (08:34)
[2018-06-19] MEDS: INSULIN LISPRO 100 UNITS/ML SUBCUT SCH ×4 (08:39→20:22)
[2018-06-19 09:23] LABS: BASOPHILS % 0.7 % (0.0-2.0); EOSINOPHILS % 0.6 % (0.0-5.0); HEMATOCRIT. 31.8 % (36.0-48.0); HEMOGLOBIN. 10.7 g/dL (12.0-16.0); LYMPHOCYTES % 11.5 % (20.0-50.0); MEAN CORPUSCULAR HEMOGLOBIN 32.8 pg (28.0-32.0); MEAN CORPUSCULAR VOLUME 97.4 fL (81.0-99.0); MEAN PLATELET VOLUME 9.7 fl (7.4-10.4); MONOCYTES % 5.3 % (2.0-8.0); NEUTROPHILS % 81.9 % (40.0-76.0); PLATELET 226 x1000/uL (130-400); RED BLOOD CELL COUNT 3.26 mill/uL (4.2-5.4); RED CELL DISTRIBUTION WIDTH 18.3 % (11.6-14.6)
[2018-06-19 09:39] LABS: CHLORIDE 103 mEq/L (98-107)
[2018-06-19] MEDS: LABETALOL HCL 100MG TABLET PO SCH (20:09)
[2018-06-19] MEDS ORDERED: HYDRALAZINE HCL 100MG TABLET PO SCH (21:00)
[2018-06-19] MEDS: HYDRALAZINE HCL 100MG TABLET PO SCH (21:56)
[2018-06-20] VITALS (7 sets, daily range): BP systolic 146–168; BP diastolic 64–81
[2018-06-20] MEDS: CLONIDINE 0.2MG TABLET PO PRN ×2 (00:01→13:47)
[2018-06-20] MEDS: BLOOD SUGAR DIAGNOSTIC STRIP TEST SCH ×4 (06:07→22:59)
[2018-06-20] MEDS: ONDANSETRON HCL 4MG/2ML INJ IV PRN ×3 (06:58→13:30)
[2018-06-20] MEDS: HYDRALAZINE HCL 100MG TABLET PO SCH ×3 (06:59→23:00)
[2018-06-20] MEDS: INSULIN LISPRO 100 UNITS/ML SUBCUT SCH ×4 (07:01→17:38)
[2018-06-20] MEDS: AMLODIPINE 10MG TABLET PO SCH (08:43)
[2018-06-20] MEDS: LABETALOL HCL 100MG TABLET PO SCH ×2 (08:44→22:59)
== END 2018-06-21 06:35 | disposition home or self-care (01) | DRG 291 ==
LOC: ER 07:57 → 7WST 10:25 → EDBEDREQSVC 10:37 → EDBEDREQ 10:37 → ENRESERV 15:30
PROVIDERS: ADMIT Hospitalist; ATTEND Hospitalist
PROC: 5A1D70Z Performance of Urinary Filtration, Intermittent, Less than 6 Hours Per Day (ICD-10-PCS; principal; 2018-06-19)
PROC: 5A1D70Z Performance of Urinary Filtration, Intermittent, Less than 6 Hours Per Day (ICD-10-PCS; 2018-06-20)
DX: I13.2 Hypertensive heart and chronic kidney disease with heart failure and with stage 5 chronic kidney disease, or end stage renal disease (principal); I50.33 Acute on chronic diastolic (congestive) heart failure; N18.6 End stage renal disease; K29.00 Acute gastritis without bleeding; E11.22 Type 2 diabetes mellitus with diabetic chronic kidney disease; Z99.2 Dependence on renal dialysis; Z82.49 Family history of ischemic heart disease and other diseases of the circulatory system; Z88.8 Allergy status to other drugs, medicaments and biological substances; Z98.891 History of uterine scar from previous surgery; Z79.899 Other long term (current) drug therapy; Z79.4 Long term (current) use of insulin; Z79.82 Long term (current) use of aspirin
CPT/HCPCS: 36415; 71045; 82962; 83036; 83605; 83880; 84145; 84484; 87804; 93005; 93970; 96374; 99285; J0360; J1815; J2405

== ENCOUNTER → 2018-11-18 | Outpatient (CLI) | payer MEDICARE, MEDICAID ==
[~2018-11-18] MED LIST changes: -CALCIUM ACETATE MT; +INSU100V3 SUBCUT; -INSULIN R SUBCUT; -LOSA100T14 PO; +LOSA100T32 PO
== END | disposition home or self-care (01) ==
LOC: MAMMO 09:39
PROVIDERS: ATTEND Internal Medicine Nephrology
DX: Z12.31 Encounter for screening mammogram for malignant neoplasm of breast (principal)
CPT/HCPCS: 77067

== ENCOUNTER 2018-12-05 04:16 | Inpatient (IN) | payer MEDICARE, MEDICAID ==
[~2018-12-05] VITALS: Ht 180.3 cm; Wt 76.7 kg
[2018-12-05] MEDS ORDERED: MORPHINE SULFATE 4 MG/ML CPJ (NOT FOR IM USE) IV STA (04:48)
[2018-12-05] MEDS ORDERED: ONDANSETRON HCL 4MG/2ML INJ IV STA (04:48)
[2018-12-05 07:36] LABS: BASOPHILS % 0.6 % (0.0-2.0); CHLORIDE 103 mEq/L (98-107); EOSINOPHILS % 0.1 % (0.0-5.0); HEMOGLOBIN. 8.9 g/dL (12.0-16.0); LYMPHOCYTES % 7.2 % (20.0-50.0); MEAN CORPUSCULAR HEMOGLOBIN 33.5 pg (28.0-32.0); MEAN CORPUSCULAR VOLUME 98.1 fL (81.0-99.0); MEAN PLATELET VOLUME 9.8 fl (7.4-10.4); MONOCYTES % 9.3 % (2.0-8.0); NEUTROPHILS % 82.8 % (40.0-76.0); PLATELET 283 x1000/uL (130-400); RED BLOOD CELL COUNT 2.65 mill/uL (4.2-5.4); RED CELL DISTRIBUTION WIDTH 17.3 % (11.6-14.6)
[2018-12-05 07:39] LABS: HCG SCREEN NEGATIVE
[2018-12-05] MEDS ORDERED: CLONIDINE 0.1MG TABLET PO NR (08:24)
[2018-12-05] MEDS: METOPROLOL TARTRATE 50MG TABLET PO SCH ×2 (08:32→20:54)
[2018-12-05] MEDS ORDERED: ACETAMINOPHEN 325MG TABLET PO PRN (11:15)
[2018-12-05 11:30] VITALS: BP_SYST 186; BP_DIAS 75; BP_DIAS 87
[2018-12-05] MEDS ORDERED: DEXTROSE 50% WATER 50ML SYRINGE IV PRN (11:30)
[2018-12-05] MEDS: LOSARTAN POTASSIUM 100 MG TABLET PO SCH (11:31)
[2018-12-05] MEDS: NIFEDIPINE XL 60MG TAB PO SCH ×2 (11:31→20:53)
[2018-12-05] MEDS: ONDANSETRON HCL 4MG/2ML INJ IV PRN (11:32)
[2018-12-05] MEDS: BLOOD SUGAR DIAGNOSTIC STRIP TEST SCH ×3 (12:40→20:57)
[2018-12-05] MEDS: INSULIN LISPRO 100 UNITS/ML SUBCUT SCH ×3 (13:10→21:00)
[2018-12-05 16:00] VITALS: BP 177/91
[2018-12-05] MEDS ORDERED: HYDROCODONE/ACETAMINOPHEN 5/325MG TABLET PO PRN (18:00)
[2018-12-05] MEDS: CLONIDINE 0.1MG TABLET PO PRN (19:33)
[2018-12-05 20:00] VITALS: BP 168/89
[2018-12-05] MEDS: HYDRALAZINE HCL 50MG TABLET PO SCH (22:00)
[2018-12-05] MEDS ORDERED: MORPHINE SULFATE 2 MG/ML CPJ (NOT FOR IM USE) IV PRN (22:15)
[2018-12-05] MEDS: SIMETHICONE 80MG TABLET CHEW PO PRN (22:56)
[2018-12-06] VITALS (7 sets, daily range): BP systolic 140–197; BP diastolic 69–119
[2018-12-06] MEDS: ONDANSETRON HCL 4MG/2ML INJ IV PRN (06:45)
[2018-12-06] MEDS: HYDRALAZINE HCL 50MG TABLET PO SCH ×3 (07:08→21:20)
[2018-12-06] MEDS: BLOOD SUGAR DIAGNOSTIC STRIP TEST SCH ×4 (07:09→21:20)
[2018-12-06 07:28] LABS: BASOPHILS % 0.9 % (0.0-2.0); EOSINOPHILS % 2.1 % (0.0-5.0); HEMATOCRIT. 29.5 % (36.0-48.0); HEMOGLOBIN. 9.9 g/dL (12.0-16.0); LYMPHOCYTES % 21.3 % (20.0-50.0); MEAN CORPUSCULAR HEMOGLOBIN 33.2 pg (28.0-32.0); MEAN CORPUSCULAR VOLUME 98.7 fL (81.0-99.0); NEUTROPHILS % 66.7 % (40.0-76.0); PLATELET 329 x1000/uL (130-400); RED BLOOD CELL COUNT 2.99 mill/uL (4.2-5.4); RED CELL DISTRIBUTION WIDTH 17.3 % (11.6-14.6)
[2018-12-06] MEDS: INSULIN LISPRO 100 UNITS/ML SUBCUT SCH ×4 (08:10→21:38)
[2018-12-06] MEDS ORDERED: METOPROLOL TARTRATE 25MG TABLET PO SCH (09:00)
[2018-12-06] MEDS: ASPIRIN 81MG EC TABLET PO SCH (09:00)
[2018-12-06] MEDS: NIFEDIPINE XL 60MG TAB PO SCH ×2 (09:00→21:20)
[2018-12-06] MEDS: METOPROLOL TARTRATE 50MG TABLET PO SCH ×2 (09:00→21:19)
[2018-12-06] MEDS: LOSARTAN POTASSIUM 100 MG TABLET PO SCH (09:00)
[2018-12-06] MEDS: CLONIDINE 0.1MG TABLET PO PRN (12:20)
[2018-12-06] MEDS: SIMETHICONE 80MG TABLET CHEW PO PRN ×2 (21:10→21:19)
[2018-12-07] VITALS (7 sets, daily range): BP systolic 158–203; BP diastolic 61–116
[2018-12-07] MEDS: HYDRALAZINE HCL 50MG TABLET PO SCH ×3 (05:45→20:34)
[2018-12-07] MEDS: CLONIDINE 0.1MG TABLET PO PRN ×3 (05:48→14:10)
[2018-12-07] MEDS: BLOOD SUGAR DIAGNOSTIC STRIP TEST SCH ×4 (07:42→20:42)
[2018-12-07] MEDS: LOSARTAN POTASSIUM 100 MG TABLET PO SCH (09:00)
[2018-12-07] MEDS: METOPROLOL TARTRATE 50MG TABLET PO SCH ×2 (09:00→20:54)
[2018-12-07] MEDS: NIFEDIPINE XL 60MG TAB PO SCH ×2 (09:00→20:34)
[2018-12-07] MEDS: INSULIN LISPRO 100 UNITS/ML SUBCUT SCH ×4 (09:29→20:53)
[2018-12-07] MEDS: ASPIRIN 81MG EC TABLET PO SCH (09:29)
[2018-12-08] VITALS: BP 116/65
[2018-12-08 04:00] VITALS: BP 196/70
[2018-12-08] MEDS: SIMETHICONE 80MG TABLET CHEW PO PRN ×3 (04:05→22:46)
[2018-12-08] MEDS: ONDANSETRON HCL 4MG/2ML INJ IV PRN (04:48)
[2018-12-08] MEDS: HYDRALAZINE HCL 50MG TABLET PO SCH ×3 (06:19→20:53)
[2018-12-08] MEDS: BLOOD SUGAR DIAGNOSTIC STRIP TEST SCH ×4 (07:40→20:54)
[2018-12-08 08:00] VITALS: BP 180/89
[2018-12-08] MEDS: METOPROLOL TARTRATE 50MG TABLET PO SCH ×2 (09:00→20:54)
[2018-12-08] MEDS: NIFEDIPINE XL 60MG TAB PO SCH ×2 (09:00→20:54)
[2018-12-08] MEDS: LOSARTAN POTASSIUM 100 MG TABLET PO SCH (09:00)
[2018-12-08] MEDS: ASPIRIN 81MG EC TABLET PO SCH (09:01)
[2018-12-08] MEDS: INSULIN LISPRO 100 UNITS/ML SUBCUT SCH ×4 (09:01→20:52)
[2018-12-08 12:00] VITALS: BP 190/89
[2018-12-08 16:00] VITALS: BP 193/78
[2018-12-08] MEDS: CLONIDINE 0.1MG TABLET PO PRN (16:34)
[2018-12-08 20:36] VITALS: BP 214/71
[2018-12-09] VITALS: BP 192/65
[2018-12-09] MEDS: CLONIDINE 0.1MG TABLET PO PRN ×2 (01:34→11:44)
[2018-12-09 04:00] VITALS: BP 177/75
[2018-12-09] MEDS: HYDRALAZINE HCL 50MG TABLET PO SCH ×2 (05:46→13:54)
[2018-12-09] MEDS: BLOOD SUGAR DIAGNOSTIC STRIP TEST SCH ×2 (05:46→11:39)
[2018-12-09 08:00] VITALS: BP 152/74
[2018-12-09] MEDS: INSULIN LISPRO 100 UNITS/ML SUBCUT SCH ×2 (08:01→13:54)
[2018-12-09] MEDS: LOSARTAN POTASSIUM 100 MG TABLET PO SCH ×3 (08:01→09:00)
[2018-12-09] MEDS: METOPROLOL TARTRATE 50MG TABLET PO SCH (08:02)
[2018-12-09] MEDS: NIFEDIPINE XL 60MG TAB PO SCH (08:02)
[2018-12-09] MEDS: ASPIRIN 81MG EC TABLET PO SCH (08:03)
[2018-12-09 12:00] VITALS: BP 180/81
[2018-12-09 16:00] VITALS: BP 160/80
[2018-12-09 16:45] VITALS: BP 166/86
== END 2018-12-09 17:35 | disposition home or self-care (01) | DRG 640 ==
LOC: ER 04:16 → 7WST 05:25 → EDBEDREQ 05:33 → EDBEDREQTM 05:33 → ENRESERV 07:18
PROVIDERS: ADMIT Internal Medicine Nephrology; ATTEND Internal Medicine Nephrology
PROC: 5A1D70Z Performance of Urinary Filtration, Intermittent, Less than 6 Hours Per Day (ICD-10-PCS; principal; 2018-12-05)
PROC: 5A1D70Z Performance of Urinary Filtration, Intermittent, Less than 6 Hours Per Day (ICD-10-PCS; 2018-12-06)
PROC: 5A1D70Z Performance of Urinary Filtration, Intermittent, Less than 6 Hours Per Day (ICD-10-PCS; 2018-12-08)
DX: E87.5 Hyperkalemia (principal); N18.6 End stage renal disease; I50.30 Unspecified diastolic (congestive) heart failure; I13.2 Hypertensive heart and chronic kidney disease with heart failure and with stage 5 chronic kidney disease, or end stage renal disease; I16.0 Hypertensive urgency; D63.8 Anemia in other chronic diseases classified elsewhere; E11.22 Type 2 diabetes mellitus with diabetic chronic kidney disease; R74.0 Nonspecific elevation of levels of transaminase and lactic acid dehydrogenase [LDH]; Z99.2 Dependence on renal dialysis; Z98.891 History of uterine scar from previous surgery; Z88.8 Allergy status to other drugs, medicaments and biological substances; Z79.899 Other long term (current) drug therapy; Z79.82 Long term (current) use of aspirin
CPT/HCPCS: 36415; 71045; 80048; 82962; 83605; 84484; 84703; 86850; 86900; 93005; 93970; 99285; J1815; J2270; J2405

== ENCOUNTER 2019-04-10 09:00 | Inpatient (IN) | payer MEDICARE, MEDICAID ==
[~2019-04-10] VITALS: Ht 180.3 cm; Wt 77.3 kg
[~2019-04-10 09:00] MED LIST changes: -NIFE90TA34 MT; +NIFE90TA60 MT
[2019-04-10] MEDS ORDERED: LEVOFLOXACIN 500MG PREMIX 100 ML IV ONE (09:45)
[2019-04-10] MEDS ORDERED: LABETALOL 5MG/ML SYR 20 MG/4 ML SYRINGE IV ONE (09:45)
[2019-04-10] MEDS ORDERED: SODIUM CHLORIDE 0.9% 1000ML BAG (SEPSIS BOLUS) IV ONE (09:45)
[2019-04-10] MEDS ORDERED: MORPHINE SULFATE 4 MG/ML CPJ (NOT FOR IM USE) IV ONE (09:45)
[2019-04-10] MEDS ORDERED: ONDANSETRON HCL 4MG/2ML INJ IV ONE (09:45)
[2019-04-10 09:58] LABS: INR 1.1; PROTHROMBIN TIME 11.6 sec (9.6-11.0)
[2019-04-10 09:59] LABS: HEMATOCRIT. 37.1 % (36.0-48.0); HEMOGLOBIN. 12.3 g/dL (12.0-16.0); MEAN CORPUSCULAR HEMOGLOBIN 32.7 pg (28.0-32.0); MEAN CORPUSCULAR VOLUME 98.4 fL (81.0-99.0); MEAN PLATELET VOLUME 10.6 fl (7.4-10.4); PLATELET 79 x1000/uL (130-400); RED BLOOD CELL COUNT 3.77 mill/uL (4.2-5.4); RED CELL DISTRIBUTION WIDTH 18.5 % (11.6-14.6)
[2019-04-10 10:42] LABS: CHLORIDE 99 mEq/L (98-107)
[2019-04-10] MEDS ORDERED: SODIUM BICARBONATE 4% (2.4MEQ) 5ML VIAL IV ONE (10:46)
[2019-04-10] MEDS ORDERED: LIDOCAINE HCL 1% 20ML VIAL (Pyxis) INJ ONE (10:46)
[2019-04-10 10:50] LABS: PHOSPHORUS 2.5 mg/dL (2.5-4.9)
[2019-04-10 11:08] LABS: PLATELET ESTIMATE DECREASED
[2019-04-10] MEDS ORDERED: LORAZEPAM 2MG/ML CPJ IV PRN (15:30)
[2019-04-10] MEDS ORDERED: ENOXAPARIN 40MG/0.4ML SYR SUBCUT SCH (15:30)
[2019-04-10] MEDS ORDERED: IPRATROPIUM/ALBUTEROL 0.5-3(2.5)MG/3ML NEB NEB PRN (15:30)
[2019-04-10] MEDS ORDERED: HYDROCODONE/ACETAMINOPHEN 5/325MG TABLET PO PRN (15:30)
[2019-04-10 16:00] VITALS: BP 109/54
[2019-04-10 16:10] VITALS: BP 206/62
[2019-04-10 16:30] VITALS: BP 206/62
[2019-04-10] MEDS: THIAMINE HCL 100MG TABLET PO SCH (17:22)
[2019-04-10] MEDS: CLONIDINE 0.1MG TABLET PO PRN ×2 (17:22→23:46)
[2019-04-10] MEDS: LISINOPRIL 20MG TABLET PO SCH (17:22)
[2019-04-10] MEDS: MORPHINE SULFATE 2 MG/ML CPJ (NOT FOR IM USE) IV PRN (17:55)
[2019-04-10 18:50] VITALS: BP 168/42
[2019-04-10 20:00] VITALS: BP 177/53
[2019-04-10] MEDS: ONDANSETRON HCL 4MG/2ML INJ IV PRN (23:46)
[2019-04-11] VITALS (7 sets, daily range): BP systolic 157–217; BP diastolic 52–90
[2019-04-11] MEDS ORDERED: CLON-457 PO (03:45)
[2019-04-11] MEDS ORDERED: HYDR100T26 MT (04:07)
[2019-04-11] MEDS: NIFEDIPINE XL 90MG TAB PO SCH (04:19)
[2019-04-11] MEDS: HYDRALAZINE HCL 100MG TABLET PO SCH ×3 (06:40→21:25)
[2019-04-11] MEDS: LISINOPRIL 20MG TABLET PO SCH (09:26)
[2019-04-11] MEDS: CLONIDINE 0.1MG TABLET PO SCH ×2 (09:26→21:25)
[2019-04-11] MEDS: ASPIRIN 81MG EC TABLET PO SCH (09:26)
[2019-04-11] MEDS: THIAMINE HCL 100MG TABLET PO SCH (09:26)
[2019-04-11] MEDS: MORPHINE SULFATE 2 MG/ML CPJ (NOT FOR IM USE) IV PRN ×2 (16:50→21:38)
[2019-04-11] MEDS ORDERED: DEXTROSE 50% WATER 50ML SYRINGE IV PRN (17:15)
[2019-04-11] MEDS: BLOOD SUGAR DIAGNOSTIC STRIP TEST SCH ×2 (17:20→21:00)
[2019-04-11] MEDS ORDERED: PROMETHAZINE/DEXTROMETHORPHAN 6.25-15MG/5ML BOTTLE 120ML PO PRN (17:30)
[2019-04-11] MEDS: INSULIN LISPRO 100 UNITS/ML SUBCUT SCH ×2 (19:00→21:37)
[2019-04-12] VITALS: BP 191/58
[2019-04-12] MEDS: CLONIDINE 0.1MG TABLET PO PRN ×2 (01:33→19:22)
[2019-04-12] MEDS: ONDANSETRON HCL 4MG/2ML INJ IV PRN ×4 (01:33→23:58)
[2019-04-12 04:00] VITALS: BP 158/42
[2019-04-12 06:10] LABS: BASOPHILS % 0.8 % (0.0-2.0); EOSINOPHILS % 2.7 % (0.0-5.0); HEMATOCRIT. 31.2 % (36.0-48.0); HEMOGLOBIN. 10.4 g/dL (12.0-16.0); LYMPHOCYTES % 32.7 % (20.0-50.0); MEAN CORPUSCULAR HEMOGLOBIN 32.6 pg (28.0-32.0); MEAN PLATELET VOLUME 9.9 fl (7.4-10.4); MONOCYTES % 12.8 % (2.0-8.0); PLATELET 204 x1000/uL (130-400); RED BLOOD CELL COUNT 3.18 mill/uL (4.2-5.4); RED CELL DISTRIBUTION WIDTH 18.8 % (11.6-14.6)
[2019-04-12] MEDS: HYDRALAZINE HCL 100MG TABLET PO SCH ×3 (06:28→21:19)
[2019-04-12] MEDS: BLOOD SUGAR DIAGNOSTIC STRIP TEST SCH ×4 (06:28→21:00)
[2019-04-12 07:29] LABS: PHOSPHORUS 3.4 mg/dL (2.5-4.9)
[2019-04-12 08:00] VITALS: BP 189/89
[2019-04-12] MEDS: NIFEDIPINE XL 90MG TAB PO SCH ×2 (09:00→17:19)
[2019-04-12] MEDS: LISINOPRIL 10MG TABLET PO SCH (09:00)
[2019-04-12] MEDS: CLONIDINE 0.1MG TABLET PO SCH ×2 (09:00→21:19)
[2019-04-12] MEDS: LEVOFLOXACIN 250MG PREMIX 50 ML IV SCH (09:04)
[2019-04-12] MEDS: INSULIN LISPRO 100 UNITS/ML SUBCUT SCH ×4 (09:26→21:00)
[2019-04-12] MEDS: ASPIRIN 81MG EC TABLET PO SCH (11:14)
[2019-04-12] MEDS: THIAMINE HCL 100MG TABLET PO SCH (11:14)
[2019-04-12 12:00] VITALS: BP 110/67
[2019-04-12 16:00] VITALS: BP 216/70
[2019-04-12 20:00] VITALS: BP 198/54
[2019-04-13] VITALS (7 sets, daily range): BP systolic 122–226; BP diastolic 45–106
[2019-04-13] MEDS: HYDRALAZINE HCL 100MG TABLET PO SCH ×3 (05:58→22:09)
[2019-04-13] MEDS: ONDANSETRON HCL 4MG/2ML INJ IV PRN ×2 (06:30→22:08)
[2019-04-13] MEDS: BLOOD SUGAR DIAGNOSTIC STRIP TEST SCH ×4 (06:31→21:04)
[2019-04-13] MEDS: INSULIN LISPRO 100 UNITS/ML SUBCUT SCH ×4 (07:50→21:07)
[2019-04-13] MEDS: THIAMINE HCL 100MG TABLET PO SCH (10:46)
[2019-04-13] MEDS: CLONIDINE 0.1MG TABLET PO SCH ×2 (10:47→22:09)
[2019-04-13] MEDS: ASPIRIN 81MG EC TABLET PO SCH (10:47)
[2019-04-13] MEDS: LISINOPRIL 10MG TABLET PO SCH (14:16)
[2019-04-13] MEDS: NIFEDIPINE XL 90MG TAB PO SCH (14:16)
[2019-04-14] VITALS (7 sets, daily range): BP systolic 127–217; BP diastolic 65–107
[2019-04-14] MEDS: CLONIDINE 0.1MG TABLET PO PRN ×2 (02:19→16:02)
[2019-04-14] MEDS: HYDRALAZINE HCL 100MG TABLET PO SCH ×2 (05:30→13:13)
[2019-04-14] MEDS: BLOOD SUGAR DIAGNOSTIC STRIP TEST SCH ×4 (07:12→21:48)
[2019-04-14] MEDS: INSULIN LISPRO 100 UNITS/ML SUBCUT SCH ×4 (07:37→21:00)
[2019-04-14] MEDS: ONDANSETRON HCL 4MG/2ML INJ IV PRN ×2 (07:41→18:36)
[2019-04-14] MEDS: NIFEDIPINE XL 90MG TAB PO SCH (10:54)
[2019-04-14] MEDS: THIAMINE HCL 100MG TABLET PO SCH (10:55)
[2019-04-14] MEDS: CLONIDINE 0.1MG TABLET PO SCH (10:55)
[2019-04-14] MEDS: ASPIRIN 81MG EC TABLET PO SCH (10:55)
[2019-04-14] MEDS: LISINOPRIL 10MG TABLET PO SCH (10:55)
[2019-04-14] MEDS: LEVOFLOXACIN 250MG PREMIX 50 ML IV SCH (10:56)
[2019-04-14] MEDS ORDERED: HYDRALAZINE HCL 100MG TABLET PO NR (17:15)
[2019-04-14] MEDS: MORPHINE SULFATE 2 MG/ML CPJ (NOT FOR IM USE) IV PRN (21:35)
[2019-04-14] MEDS: HYDRALAZINE HCL 25MG TABLET PO SCH (23:45)
[2019-04-14] MEDS: CLONIDINE 0.2MG TABLET PO SCH (23:45)
[2019-04-15] VITALS (7 sets, daily range): BP systolic 137–201; BP diastolic 49–82
[2019-04-15] MEDS: HYDRALAZINE HCL 25MG TABLET PO SCH ×2 (06:33→13:11)
[2019-04-15] MEDS: CLONIDINE 0.2MG TABLET PO SCH ×3 (06:36→22:01)
[2019-04-15] MEDS: BLOOD SUGAR DIAGNOSTIC STRIP TEST SCH ×4 (06:36→21:59)
[2019-04-15] MEDS: ONDANSETRON HCL 4MG/2ML INJ IV PRN (08:34)
[2019-04-15] MEDS: THIAMINE HCL 100MG TABLET PO SCH (08:36)
[2019-04-15] MEDS: ASPIRIN 81MG EC TABLET PO SCH (08:36)
[2019-04-15] MEDS: NIFEDIPINE XL 90MG TAB PO SCH (08:36)
[2019-04-15] MEDS: LISINOPRIL 10MG TABLET PO SCH (08:37)
[2019-04-15] MEDS: INSULIN LISPRO 100 UNITS/ML SUBCUT SCH ×4 (08:53→22:13)
[2019-04-15] MEDS: HYDRALAZINE HCL 100MG TABLET PO SCH (22:00)
[2019-04-15] MEDS ORDERED: HYDRALAZINE HCL 50MG TABLET PO SCH (22:00)
[2019-04-16] VITALS (7 sets, daily range): BP systolic 107–199; BP diastolic 60–80
[2019-04-16] MEDS: ONDANSETRON HCL 4MG/2ML INJ IV PRN ×3 (05:00→19:03)
[2019-04-16] MEDS: HYDRALAZINE HCL 100MG TABLET PO SCH ×4 (05:06→21:01)
[2019-04-16] MEDS: CLONIDINE 0.2MG TABLET PO SCH ×4 (05:06→21:00)
[2019-04-16] MEDS: INSULIN LISPRO 100 UNITS/ML SUBCUT SCH ×4 (07:50→20:19)
[2019-04-16] MEDS: BLOOD SUGAR DIAGNOSTIC STRIP TEST SCH ×4 (08:08→20:19)
[2019-04-16] MEDS: NIFEDIPINE XL 90MG TAB PO SCH (08:27)
[2019-04-16] MEDS: ASPIRIN 81MG EC TABLET PO SCH (08:27)
[2019-04-16] MEDS: MINOXIDIL 2.5MG TABLET PO SCH ×2 (08:27→17:00)
[2019-04-16] MEDS: THIAMINE HCL 100MG TABLET PO SCH (08:28)
[2019-04-16] MEDS: LISINOPRIL 10MG TABLET PO SCH (08:28)
[2019-04-16] MEDS: HYDROCODONE/ACETAMINOPHEN 5/325MG TABLET PO PRN (18:09)
[2019-04-16] MEDS ORDERED: HYDRALAZINE 20MG/ML VIAL IV PRN (18:15)
[2019-04-16] MEDS ORDERED: METOCLOPRAMIDE HCL 10MG TABLET PO PRN (18:30)
[2019-04-17] VITALS (8 sets, daily range): BP systolic 114–166; BP diastolic 48–82
[2019-04-17] MEDS: CLONIDINE 0.2MG TABLET PO SCH ×3 (06:01→21:28)
[2019-04-17] MEDS: HYDRALAZINE HCL 100MG TABLET PO SCH ×3 (06:01→21:28)
[2019-04-17] MEDS: BLOOD SUGAR DIAGNOSTIC STRIP TEST SCH ×4 (07:20→20:44)
[2019-04-17] MEDS: INSULIN LISPRO 100 UNITS/ML SUBCUT SCH ×4 (07:50→21:45)
[2019-04-17] MEDS: LISINOPRIL 10MG TABLET PO SCH (08:26)
[2019-04-17] MEDS: ASPIRIN 81MG EC TABLET PO SCH (08:26)
[2019-04-17] MEDS: HYDROCODONE/ACETAMINOPHEN 5/325MG TABLET PO PRN (08:32)
[2019-04-17] MEDS: NIFEDIPINE XL 90MG TAB PO SCH (08:32)
[2019-04-17] MEDS: CLONIDINE 0.1MG TABLET PO PRN (08:33)
[2019-04-17] MEDS: THIAMINE HCL 100MG TABLET PO SCH (08:33)
[2019-04-17] MEDS: MINOXIDIL 2.5MG TABLET PO SCH ×2 (08:35→17:00)
[2019-04-17 18:06] LABS: BASOPHILS % 1.1 % (0.0-2.0); EOSINOPHILS % 0.9 % (0.0-5.0); HEMATOCRIT. 29.6 % (36.0-48.0); HEMOGLOBIN. 10.1 g/dL (12.0-16.0); LYMPHOCYTES % 17.9 % (20.0-50.0); MEAN CORPUSCULAR HEMOGLOBIN 33.1 pg (28.0-32.0); MEAN CORPUSCULAR VOLUME 97.4 fL (81.0-99.0); MEAN PLATELET VOLUME 9.5 fl (7.4-10.4); MONOCYTES % 10.7 % (2.0-8.0); NEUTROPHILS % 69.4 % (40.0-76.0); PLATELET 227 x1000/uL (130-400); RED BLOOD CELL COUNT 3.04 mill/uL (4.2-5.4); RED CELL DISTRIBUTION WIDTH 18.9 % (11.6-14.6)
[2019-04-18] VITALS: BP 152/74
[2019-04-18 04:00] VITALS: BP 122/55
[2019-04-18] MEDS: CLONIDINE 0.2MG TABLET PO SCH (05:56)
[2019-04-18] MEDS: HYDRALAZINE HCL 100MG TABLET PO SCH (05:56)
[2019-04-18] MEDS: ONDANSETRON HCL 4MG/2ML INJ IV PRN ×2 (05:56→12:10)
[2019-04-18] MEDS: HYDROCODONE/ACETAMINOPHEN 5/325MG TABLET PO PRN (06:12)
[2019-04-18] MEDS: BLOOD SUGAR DIAGNOSTIC STRIP TEST SCH (06:21)
[2019-04-18] MEDS: INSULIN LISPRO 100 UNITS/ML SUBCUT SCH (07:50)
[2019-04-18] MEDS: MINOXIDIL 2.5MG TABLET PO SCH (09:00)
[2019-04-18] MEDS: THIAMINE HCL 100MG TABLET PO SCH (09:00)
[2019-04-18] MEDS: NIFEDIPINE XL 90MG TAB PO SCH (09:00)
[2019-04-18] MEDS: LISINOPRIL 10MG TABLET PO SCH (09:00)
[2019-04-18] MEDS: ASPIRIN 81MG EC TABLET PO SCH (09:22)
[2019-04-18 12:19] VITALS: BP 143/72
== END 2019-04-18 16:20 | disposition home or self-care (01) | DRG 291 ==
LOC: ER 09:00 → 6WST 11:19 → EDBEDREQ 11:22 → ENRESERV 14:28 → 6WST 15:20
PROVIDERS: ADMIT Internal Medicine Nephrology; ATTEND Internal Medicine Nephrology
PROC: 02HV33Z Insertion of Infusion Device into Superior Vena Cava, Percutaneous Approach (ICD-10-PCS; 2019-04-10)
PROC: B5181ZA Fluoroscopy of Superior Vena Cava using Low Osmolar Contrast, Guidance (ICD-10-PCS; 2019-04-10)
PROC: B548ZZA Ultrasonography of Superior Vena Cava, Guidance (ICD-10-PCS; 2019-04-10)
PROC: 5A1D70Z Performance of Urinary Filtration, Intermittent, Less than 6 Hours Per Day (ICD-10-PCS; principal; 2019-04-13)
PROC: 0HBNXZZ Excision of Left Foot Skin, External Approach (ICD-10-PCS; 2019-04-17)
PROC: 0HBMXZZ Excision of Right Foot Skin, External Approach (ICD-10-PCS; 2019-04-17)
PROC: 5A1D70Z Performance of Urinary Filtration, Intermittent, Less than 6 Hours Per Day (ICD-10-PCS; 2019-04-18)
DX: I13.2 Hypertensive heart and chronic kidney disease with heart failure and with stage 5 chronic kidney disease, or end stage renal disease (principal); N18.6 End stage renal disease; I50.33 Acute on chronic diastolic (congestive) heart failure; E11.43 Type 2 diabetes mellitus with diabetic autonomic (poly)neuropathy; D63.8 Anemia in other chronic diseases classified elsewhere; J20.9 Acute bronchitis, unspecified; K31.84 Gastroparesis; L60.3 Nail dystrophy; M20.42 Other hammer toe(s) (acquired), left foot; M20.41 Other hammer toe(s) (acquired), right foot; I16.0 Hypertensive urgency; Z53.29 Procedure and treatment not carried out because of patient's decision for other reasons; L57.0 Actinic keratosis; E11.22 Type 2 diabetes mellitus with diabetic chronic kidney disease; Z99.2 Dependence on renal dialysis; Z91.15 Patient's noncompliance with renal dialysis; Z98.891 History of uterine scar from previous surgery; Z88.8 Allergy status to other drugs, medicaments and biological substances; Z79.4 Long term (current) use of insulin; Z79.899 Other long term (current) drug therapy; Z79.82 Long term (current) use of aspirin
CPT/HCPCS: 36415; 36573; 71045; 76937; 78265; 80048; 80053; 82962; 83605; 83735; 84100; 84145; 84484; 85025; 87804; 93005; 93970; 99291; C1725; J0360; J1815; J1956; J2270; J2405; J3490; J7030

== ENCOUNTER 2020-02-04 21:14 | Inpatient (IN) | payer MEDICARE, MEDICAID ==
[~2020-02-04] VITALS: Ht 180.3 cm; Wt 74.0 kg
[~2020-02-04 21:14] MED LIST changes: +CLON-457 PO; +CLONIDINE 0.1MG TABLET PO SCH; -HYDR-4135 PO; +HYDR100T26 MT
[2020-02-04 22:43] LABS: BASOPHILS % 0.7 % (0.0-2.0); EOSINOPHILS % 2.4 % (0.0-5.0); HEMATOCRIT. 22.5 % (36.0-48.0); HEMOGLOBIN. 7.7 g/dL (12.0-16.0); LYMPHOCYTES % 18.6 % (20.0-50.0); MEAN CORPUSCULAR HEMOGLOBIN 34.3 pg (28.0-32.0); MEAN CORPUSCULAR VOLUME 100.3 fL (81.0-99.0); MEAN PLATELET VOLUME 9.6 fl (7.4-10.4); MONOCYTES % 6.9 % (2.0-8.0); NEUTROPHILS % 71.4 % (40.0-76.0); PLATELET 303 x1000/uL (130-400); RED BLOOD CELL COUNT 2.24 mill/uL (4.2-5.4); RED CELL DISTRIBUTION WIDTH 17.5 % (11.6-14.6)
[2020-02-04 22:50] LABS: CHLORIDE 98 mEq/L (98-107)
[2020-02-04 23:10] LABS: HCG SCREEN NEGATIVE
[2020-02-04] MEDS ORDERED: DEXTROSE 50% WATER 50ML SYRINGE IV ONE (23:15)
[2020-02-04] MEDS ORDERED: INSULIN REGULAR (HUMULIN R) 300UNITS/3ML VIAL IV ONE (23:15)
[2020-02-04] MEDS ORDERED: CALCIUM GLUCONATE 1,000 MG in DEXT 5% WATER 100 ML IV ONE (23:15)
[2020-02-04] MEDS ORDERED: SODIUM BICARBONATE 8.4% 1 MEQ/ML 50ML SYR IV ONE (23:15)
[2020-02-04] MEDS ORDERED: ALBUTEROL (0.083%) 2.5MG/3ML NEB HHN ONE (23:15)
[2020-02-04] MEDS ORDERED: MORPHINE SULFATE 2 MG/ML CPJ (NOT FOR IM USE) IV PRN (23:45)
[2020-02-04] MEDS ORDERED: IPRATROPIUM/ALBUTEROL 0.5-3(2.5)MG/3ML NEB NEB PRN (23:45)
[2020-02-04] MEDS ORDERED: DOCUSATE SODIUM 100MG CAPSULE PO PRN (23:45)
[2020-02-05] MEDS ORDERED: INSULIN REGULAR (HUMULIN R) 300UNITS/3ML VIAL SUBCUT SCH (09:00)
[2020-02-05] MEDS ORDERED: CLONIDINE 0.1MG TABLET PO SCH (09:00)
[2020-02-05] MEDS ORDERED: METOPROLOL TARTRATE 25MG TABLET PO SCH (09:00)
[2020-02-05] MEDS ORDERED: ENOXAPARIN 30MG/0.3ML SYR SUBCUT SCH (09:00)
[2020-02-05 10:02] LABS: BASOPHILS % 0.7 % (0.0-2.0); LYMPHOCYTES % 11.6 % (20.0-50.0); MEAN CORPUSCULAR HEMOGLOBIN 33.9 pg (28.0-32.0); MEAN CORPUSCULAR VOLUME 99.7 fL (81.0-99.0); MEAN PLATELET VOLUME 9.3 fl (7.4-10.4); MONOCYTES % 7.7 % (2.0-8.0); PLATELET 237 x1000/uL (130-400); RED BLOOD CELL COUNT 1.81 mill/uL (4.2-5.4); RED CELL DISTRIBUTION WIDTH 17.6 % (11.6-14.6)
[2020-02-05 10:05] LABS: HEMOGLOBIN. 6.1 g/dL (12.0-16.0)
[2020-02-05 10:08] LABS: CHLORIDE 99 mEq/L (98-107)
[2020-02-05 10:09] LABS: INR 1.1; PROTHROMBIN TIME 11.8 sec (9.6-11.0)
[2020-02-05] MEDS: METOPROLOL TARTRATE 25MG TABLET PO SCH ×2 (10:17→21:18)
[2020-02-05] MEDS: HYDRALAZINE HCL 100MG TABLET PO SCH ×3 (10:18→17:13)
[2020-02-05] MEDS: ASPIRIN 81MG EC TABLET PO SCH (10:18)
[2020-02-05] MEDS ORDERED: DEXTROSE 50% WATER 50ML SYRINGE IV PRN (11:15)
[2020-02-05] MEDS: NIFEDIPINE XL 90MG TAB PO SCH (11:48)
[2020-02-05] MEDS: LOSARTAN POTASSIUM 100 MG TABLET PO SCH ×2 (11:48→11:59)
[2020-02-05] MEDS: BLOOD SUGAR DIAGNOSTIC STRIP TEST SCH ×3 (12:20→21:25)
[2020-02-05] MEDS ORDERED: INSULIN GLARGINE UD 100 UNITS/ML SYR SUBCUT ONE (12:30)
[2020-02-05] MEDS: CLONIDINE 0.1MG TABLET PO PRN (13:42)
[2020-02-05] MEDS: INSULIN LISPRO 100 UNITS/ML SUBCUT SCH ×3 (13:52→22:40)
[2020-02-05 15:43] VITALS: BP 204/73
[2020-02-05 16:00] VITALS: BP 173/75
[2020-02-05] MEDS ORDERED: CLOP75TA4 MT (16:20)
[2020-02-05] MEDS ORDERED: CALC667C MT (16:20)
[2020-02-05] MEDS ORDERED: NEPVIT MT (16:20)
[2020-02-05] MEDS: CLONIDINE 0.2MG TABLET PO SCH (17:14)
[2020-02-05 20:00] VITALS: BP 169/69
[2020-02-05] MEDS: INSULIN GLARGINE UD 100 UNITS/ML SYR SUBCUT SCH ×2 (22:00→22:41)
[2020-02-06] VITALS (10 sets, daily range): BP systolic 116–199; BP diastolic 60–90
[2020-02-06] MEDS: CLONIDINE 0.1MG TABLET PO PRN ×3 (02:11→18:33)
[2020-02-06 06:44] LABS: BASOPHILS % 0.5 % (0.0-2.0); EOSINOPHILS % 1.3 % (0.0-5.0); HEMATOCRIT. 23.4 % (36.0-48.0); LYMPHOCYTES % 13.1 % (20.0-50.0); MEAN CORPUSCULAR HEMOGLOBIN 33.6 pg (28.0-32.0); MEAN CORPUSCULAR VOLUME 99.1 fL (81.0-99.0); MEAN PLATELET VOLUME 9.8 fl (7.4-10.4); MONOCYTES % 6.5 % (2.0-8.0); NEUTROPHILS % 78.6 % (40.0-76.0); PLATELET 245 x1000/uL (130-400); RED BLOOD CELL COUNT 2.37 mill/uL (4.2-5.4)
[2020-02-06] MEDS: INSULIN LISPRO 100 UNITS/ML SUBCUT SCH ×4 (07:16→21:00)
[2020-02-06] MEDS: BLOOD SUGAR DIAGNOSTIC STRIP TEST SCH ×4 (07:16→21:00)
[2020-02-06] MEDS: CLONIDINE 0.2MG TABLET PO SCH ×2 (09:00→17:00)
[2020-02-06] MEDS: ASPIRIN 81MG EC TABLET PO SCH (09:00)
[2020-02-06] MEDS ORDERED: DEXTROSE 50% WATER 50ML SYRINGE IV ONE (10:30)
[2020-02-06] MEDS: LOSARTAN POTASSIUM 100 MG TABLET PO SCH (10:45)
[2020-02-06] MEDS: METOPROLOL TARTRATE 25MG TABLET PO SCH ×2 (10:47→21:25)
[2020-02-06] MEDS: NIFEDIPINE XL 90MG TAB PO SCH (10:47)
[2020-02-06] MEDS: HYDRALAZINE HCL 100MG TABLET PO SCH ×3 (10:47→17:00)
[2020-02-06] MEDS: INSULIN GLARGINE UD 100 UNITS/ML SYR SUBCUT SCH (11:01)
[2020-02-06] MEDS ORDERED: SODIUM POLYSTYRENE SULFONATE 15 G/60 ML BOT PO NR (11:30)
[2020-02-06] MEDS ORDERED: CALCIUM GLUCONATE 1GM PREMIX 50 ML IV NR (11:30)
[2020-02-06] MEDS ORDERED: VANCOMYCIN 1250MG in DEXTROSE 5% WATER 250ML IV SCH (12:00)
[2020-02-06] MEDS ORDERED: CALCIUM GLUCONATE 100MG/ML 10ML VIAL IV ONE (12:00)
[2020-02-06] MEDS ORDERED: INSULIN REGULAR (HUMULIN R) 300UNITS/3ML VIAL IV NR (13:00)
[2020-02-06] MEDS ORDERED: SODIUM BICARBONATE 8.4% 1 MEQ/ML 50ML SYR IV NR (13:15)
[2020-02-06] MEDS ORDERED: INSULIN GLARGINE UD 100 UNITS/ML SYR SUBCUT SCH (22:00)
[2020-02-07] VITALS: BP 174/71
[2020-02-07] MEDS: CLONIDINE 0.1MG TABLET PO PRN ×2 (00:24→23:56)
[2020-02-07] MEDS: HYDROCODONE/ACETAMINOPHEN 5/325MG TABLET PO PRN ×2 (00:28→23:56)
[2020-02-07] MEDS ORDERED: VANCOMYCIN 1250MG in DEXTROSE 5% WATER 250ML IV SCH (01:00)
[2020-02-07 04:00] VITALS: BP 173/74
[2020-02-07] MEDS: CLONIDINE 0.2MG TABLET PO SCH ×3 (06:53→22:00)
[2020-02-07] MEDS: BLOOD SUGAR DIAGNOSTIC STRIP TEST SCH ×4 (06:57→21:00)
[2020-02-07] MEDS: INSULIN LISPRO 100 UNITS/ML SUBCUT SCH ×4 (07:07→22:15)
[2020-02-07 07:21] LABS: BASOPHILS % 0.5 % (0.0-2.0); EOSINOPHILS % 1.6 % (0.0-5.0); HEMOGLOBIN. 7.9 g/dL (12.0-16.0); LYMPHOCYTES % 10.9 % (20.0-50.0); MEAN CORPUSCULAR HEMOGLOBIN 33.6 pg (28.0-32.0); MEAN PLATELET VOLUME 9.8 fl (7.4-10.4); MONOCYTES % 10.5 % (2.0-8.0); NEUTROPHILS % 76.5 % (40.0-76.0); PLATELET 254 x1000/uL (130-400); RED BLOOD CELL COUNT 2.34 mill/uL (4.2-5.4); RED CELL DISTRIBUTION WIDTH 17.1 % (11.6-14.6)
[2020-02-07 08:00] VITALS: BP 187/83
[2020-02-07] MEDS: ASPIRIN 81MG EC TABLET PO SCH (09:00)
[2020-02-07] MEDS ORDERED: DOXYCYCLINE HYCLATE 100MG CAPSULE PO SCH (09:00)
[2020-02-07] MEDS: METOPROLOL TARTRATE 25MG TABLET PO SCH ×2 (09:35→22:00)
[2020-02-07] MEDS: LOSARTAN POTASSIUM 100 MG TABLET PO SCH (09:35)
[2020-02-07] MEDS: HYDRALAZINE HCL 100MG TABLET PO SCH ×3 (09:35→18:32)
[2020-02-07] MEDS ORDERED: SODIUM POLYSTYRENE SULFONATE 15 G/60 ML BOT PO NR (10:30)
[2020-02-07] MEDS: INSULIN GLARGINE UD 100 UNITS/ML SYR SUBCUT SCH ×2 (10:30→22:00)
[2020-02-07 12:00] VITALS: BP 192/90
[2020-02-07] MEDS: LORAZEPAM 2MG/ML CPJ IV PRN (12:57)
[2020-02-07 16:00] VITALS: BP 203/91
[2020-02-07] MEDS ORDERED: HEPARIN SODIUM 1,000 UNIT/1ML VIAL IV ONE (17:00)
[2020-02-07] MEDS: NIFEDIPINE XL 90MG TAB PO SCH (18:33)
[2020-02-07 20:00] VITALS: BP 199/88
[2020-02-08] VITALS: BP 181/86
[2020-02-08 04:00] VITALS: BP 146/68
[2020-02-08 06:14] LABS: BASOPHILS % 0.9 % (0.0-2.0); EOSINOPHILS % 2.7 % (0.0-5.0); HEMATOCRIT. 24.2 % (36.0-48.0); HEMOGLOBIN. 8.3 g/dL (12.0-16.0); LYMPHOCYTES % 10.2 % (20.0-50.0); MEAN CORPUSCULAR HEMOGLOBIN 33.6 pg (28.0-32.0); MEAN CORPUSCULAR VOLUME 98.4 fL (81.0-99.0); MEAN PLATELET VOLUME 9.4 fl (7.4-10.4); MONOCYTES % 10.6 % (2.0-8.0); NEUTROPHILS % 75.6 % (40.0-76.0); PLATELET 230 x1000/uL (130-400); RED BLOOD CELL COUNT 2.46 mill/uL (4.2-5.4); RED CELL DISTRIBUTION WIDTH 16.9 % (11.6-14.6)
[2020-02-08] MEDS: CLONIDINE 0.2MG TABLET PO SCH ×3 (06:45→21:51)
[2020-02-08] MEDS: INSULIN LISPRO 100 UNITS/ML SUBCUT SCH ×4 (07:04→21:00)
[2020-02-08] MEDS: BLOOD SUGAR DIAGNOSTIC STRIP TEST SCH ×4 (07:04→21:51)
[2020-02-08] MEDS: ONDANSETRON HCL 4MG/2ML INJ IV PRN (07:39)
[2020-02-08 08:00] VITALS: BP 174/73
[2020-02-08] MEDS: LOSARTAN POTASSIUM 100 MG TABLET PO SCH (09:49)
[2020-02-08] MEDS: NIFEDIPINE XL 90MG TAB PO SCH (09:49)
[2020-02-08] MEDS: HYDRALAZINE HCL 100MG TABLET PO SCH ×3 (09:50→18:19)
[2020-02-08] MEDS: ASPIRIN 81MG EC TABLET PO SCH (09:50)
[2020-02-08] MEDS: INSULIN GLARGINE UD 100 UNITS/ML SYR SUBCUT SCH ×2 (09:50→22:00)
[2020-02-08] MEDS: METOPROLOL TARTRATE 25MG TABLET PO SCH ×2 (09:50→21:50)
[2020-02-08 12:00] VITALS: BP 124/66
[2020-02-08] MEDS ORDERED: VANCOMYCIN 1 G PREMIX 200 ML IV NR (15:00)
[2020-02-08 16:00] VITALS: BP 146/61
[2020-02-08] MEDS: HYDROCODONE/ACETAMINOPHEN 5/325MG TABLET PO PRN (19:59)
[2020-02-08 20:00] VITALS: BP 141/86
[2020-02-09] VITALS: BP 167/87
[2020-02-09] MEDS: CLONIDINE 0.1MG TABLET PO PRN (02:25)
[2020-02-09 04:00] VITALS: BP 199/67
[2020-02-09] MEDS: CLONIDINE 0.2MG TABLET PO SCH ×3 (05:58→21:24)
[2020-02-09] MEDS: BLOOD SUGAR DIAGNOSTIC STRIP TEST SCH ×4 (07:24→21:15)
[2020-02-09] MEDS: INSULIN LISPRO 100 UNITS/ML SUBCUT SCH ×4 (07:24→21:00)
[2020-02-09 08:00] VITALS: BP 159/66
[2020-02-09] MEDS: ASPIRIN 81MG EC TABLET PO SCH (09:09)
[2020-02-09] MEDS: NIFEDIPINE XL 90MG TAB PO SCH (09:09)
[2020-02-09] MEDS: LOSARTAN POTASSIUM 100 MG TABLET PO SCH (09:09)
[2020-02-09] MEDS: ONDANSETRON HCL 4MG/2ML INJ IV PRN (09:10)
[2020-02-09] MEDS: METOPROLOL TARTRATE 25MG TABLET PO SCH ×2 (09:10→21:25)
[2020-02-09] MEDS: HYDRALAZINE HCL 100MG TABLET PO SCH ×3 (09:10→17:47)
[2020-02-09] MEDS: INSULIN GLARGINE UD 100 UNITS/ML SYR SUBCUT SCH ×2 (09:33→21:25)
[2020-02-09 10:07] LABS: BASOPHILS % 0.9 % (0.0-2.0); EOSINOPHILS % 3.8 % (0.0-5.0); HEMATOCRIT. 24.1 % (36.0-48.0); HEMOGLOBIN. 8.2 g/dL (12.0-16.0); LYMPHOCYTES % 16.7 % (20.0-50.0); MEAN CORPUSCULAR HEMOGLOBIN 33.3 pg (28.0-32.0); MEAN CORPUSCULAR VOLUME 98.2 fL (81.0-99.0); MEAN PLATELET VOLUME 9.5 fl (7.4-10.4); MONOCYTES % 8.9 % (2.0-8.0); NEUTROPHILS % 69.7 % (40.0-76.0); PLATELET 213 x1000/uL (130-400); RED BLOOD CELL COUNT 2.45 mill/uL (4.2-5.4); RED CELL DISTRIBUTION WIDTH 16.3 % (11.6-14.6)
[2020-02-09 12:00] VITALS: BP 173/64
[2020-02-09 16:00] VITALS: BP 131/68
[2020-02-09] MEDS ORDERED: VANCOMYCIN 1 G PREMIX 200 ML IV NR (16:00)
[2020-02-09] MEDS: LORAZEPAM 2MG/ML CPJ IV PRN (21:17)
[2020-02-10 08:00] VITALS: BP 147/58
[2020-02-10] MEDS: NIFEDIPINE XL 90MG TAB PO SCH ×2 (09:00→23:15)
[2020-02-10] MEDS: ASPIRIN 81MG EC TABLET PO SCH (09:09)
[2020-02-10] MEDS: LOSARTAN POTASSIUM 100 MG TABLET PO SCH (09:09)
[2020-02-10] MEDS: METOPROLOL TARTRATE 25MG TABLET PO SCH ×2 (09:09→23:16)
[2020-02-10] MEDS: HYDRALAZINE HCL 100MG TABLET PO SCH ×2 (09:10→17:32)
[2020-02-10] MEDS: INSULIN GLARGINE UD 100 UNITS/ML SYR SUBCUT SCH ×2 (10:00→22:00)
[2020-02-10] MEDS: BLOOD SUGAR DIAGNOSTIC STRIP TEST SCH ×3 (11:42→21:00)
[2020-02-10 12:00] VITALS: BP 163/56
[2020-02-10] MEDS: INSULIN LISPRO 100 UNITS/ML SUBCUT SCH ×2 (12:45→17:29)
[2020-02-10] MEDS: CLONIDINE 0.2MG TABLET PO SCH (14:00)
[2020-02-10] MEDS: CLONIDINE 0.1MG TABLET PO PRN (17:32)
[2020-02-11] VITALS: BP 166/52
[2020-02-11 04:00] VITALS: BP 188/66
[2020-02-11] MEDS: CLONIDINE 0.2MG TABLET PO SCH ×4 (06:33→22:00)
[2020-02-11] MEDS: BLOOD SUGAR DIAGNOSTIC STRIP TEST SCH ×4 (06:35→21:00)
[2020-02-11] MEDS: INSULIN LISPRO 100 UNITS/ML SUBCUT SCH ×5 (07:50→23:04)
[2020-02-11 08:00] VITALS: BP 151/87
[2020-02-11] MEDS: METOPROLOL TARTRATE 25MG TABLET PO SCH ×2 (09:04→21:00)
[2020-02-11] MEDS: ASPIRIN 81MG EC TABLET PO SCH (09:04)
[2020-02-11] MEDS: LOSARTAN POTASSIUM 100 MG TABLET PO SCH (09:04)
[2020-02-11] MEDS: HYDRALAZINE HCL 100MG TABLET PO SCH ×3 (09:04→18:19)
[2020-02-11] MEDS: INSULIN GLARGINE UD 100 UNITS/ML SYR SUBCUT SCH ×2 (10:00→22:00)
[2020-02-11 12:00] VITALS: BP 169/74
[2020-02-11 16:00] VITALS: BP 169/54
[2020-02-11 20:00] VITALS: BP 170/72
[2020-02-11] MEDS: NIFEDIPINE XL 90MG TAB PO SCH (21:00)
[2020-02-12] VITALS (10 sets, daily range): BP systolic 128–223; BP diastolic 77–103
[2020-02-12] MEDS: CLONIDINE 0.1MG TABLET PO PRN (01:21)
[2020-02-12] MEDS: CLONIDINE 0.2MG TABLET PO SCH ×4 (05:06→21:28)
[2020-02-12 06:28] LABS: BASOPHILS % 1.1 % (0.0-2.0); EOSINOPHILS % 2.5 % (0.0-5.0); LYMPHOCYTES % 19.3 % (20.0-50.0); MEAN CORPUSCULAR HEMOGLOBIN 33.7 pg (28.0-32.0); MEAN CORPUSCULAR VOLUME 98.7 fL (81.0-99.0); MEAN PLATELET VOLUME 10.3 fl (7.4-10.4); MONOCYTES % 7.1 % (2.0-8.0); PLATELET 229 x1000/uL (130-400); RED BLOOD CELL COUNT 2.08 mill/uL (4.2-5.4); RED CELL DISTRIBUTION WIDTH 16.1 % (11.6-14.6)
[2020-02-12 06:49] LABS: HEMATOCRIT. 20.5 % (36.0-48.0)
[2020-02-12] MEDS: BLOOD SUGAR DIAGNOSTIC STRIP TEST SCH ×4 (07:20→21:28)
[2020-02-12] MEDS: LOSARTAN POTASSIUM 100 MG TABLET PO SCH (09:00)
[2020-02-12] MEDS: METOPROLOL TARTRATE 25MG TABLET PO SCH ×2 (09:00→21:15)
[2020-02-12] MEDS: ASPIRIN 81MG EC TABLET PO SCH (09:30)
[2020-02-12] MEDS: HYDRALAZINE HCL 100MG TABLET PO SCH ×3 (09:30→18:36)
[2020-02-12] MEDS: INSULIN LISPRO 100 UNITS/ML SUBCUT SCH ×4 (09:31→21:28)
[2020-02-12] MEDS: INSULIN GLARGINE UD 100 UNITS/ML SYR SUBCUT SCH ×3 (10:00→22:00)
[2020-02-12] MEDS: NIFEDIPINE XL 90MG TAB PO SCH (21:15)
== END 2020-02-12 21:50 | disposition left against medical advice (07) | DRG 698 ==
LOC: ER 21:14 → EDBEDREQTM 22:50 → EDBEDREQ 22:50 → 5WST 23:07 → ENRESERV 02-05 10:10 → 5WST 02-05 12:43 → 8WST 02-05 17:58 → 6WST 02-10 15:26
PROVIDERS: ADMIT Internal Medicine Nephrology; ATTEND Internal Medicine Nephrology
PROC: 30233N1 Transfusion of Nonautologous Red Blood Cells into Peripheral Vein, Percutaneous Approach (ICD-10-PCS; principal; 2020-02-06)
PROC: 02HV33Z Insertion of Infusion Device into Superior Vena Cava, Percutaneous Approach (ICD-10-PCS; 2020-02-07)
PROC: B548ZZA Ultrasonography of Superior Vena Cava, Guidance (ICD-10-PCS; 2020-02-07)
PROC: 5A1D70Z Performance of Urinary Filtration, Intermittent, Less than 6 Hours Per Day (ICD-10-PCS; 2020-02-07)
PROC: 5A1D70Z Performance of Urinary Filtration, Intermittent, Less than 6 Hours Per Day (ICD-10-PCS; 2020-02-08)
PROC: 5A1D70Z Performance of Urinary Filtration, Intermittent, Less than 6 Hours Per Day (ICD-10-PCS; 2020-02-10)
PROC: 5A1D70Z Performance of Urinary Filtration, Intermittent, Less than 6 Hours Per Day (ICD-10-PCS; 2020-02-12)
DX: T82.41XA Breakdown (mechanical) of vascular dialysis catheter, initial encounter (principal); N18.6 End stage renal disease; I12.0 Hypertensive chronic kidney disease with stage 5 chronic kidney disease or end stage renal disease; E87.1 Hypo-osmolality and hyponatremia; D64.9 Anemia, unspecified; N64.4 Mastodynia; N61.1 Abscess of the breast and nipple; Y84.1 Kidney dialysis as the cause of abnormal reaction of the patient, or of later complication, without mention of misadventure at the time of the procedure; E87.5 Hyperkalemia; M94.0 Chondrocostal junction syndrome [Tietze]; E87.70 Fluid overload, unspecified; N89.8 Other specified noninflammatory disorders of vagina; E11.22 Type 2 diabetes mellitus with diabetic chronic kidney disease; Z20.828 Contact with and (suspected) exposure to other viral communicable diseases; Z53.29 Procedure and treatment not carried out because of patient's decision for other reasons; Z79.4 Long term (current) use of insulin; Z99.2 Dependence on renal dialysis; Z98.891 History of uterine scar from previous surgery; Z91.19 Patient's noncompliance with other medical treatment and regimen; Z79.899 Other long term (current) drug therapy; Z79.82 Long term (current) use of aspirin; Z88.8 Allergy status to other drugs, medicaments and biological substances; Y92.89 Other specified places as the place of occurrence of the external cause
CPT/HCPCS: 36415; 36556; 71045; 71250; 77001; 80048; 80053; 80202; 82270; 82962; 83880; 84132; 84484; 84703; 85025; 86850; 86900; 86920; 87426; 87491; 87591; 93005; 94640; 99291; C1752; C1893; J0610; J1644; J1650; J1815; J2060; J2270; J2405; J3370; J3490; J7060; P9016

== ENCOUNTER → 2022-06-01 | Outpatient (CLI) | payer MEDICARE, MEDICAID ==
[~2022-06-01] MED LIST changes: +CALC667C MT; -CLONIDINE 0.1MG TABLET PO SCH; +CLOP-31 MT; -FERR325T6 MT; -LOSA100T32 PO; +MINO2.5T2 PO; +NEPVIT MT; +SEVE800T8 PO
== END | disposition home or self-care (01) ==
LOC: CARD 11:05
PROVIDERS: ATTEND Internal Medicine
DX: I51.7 Cardiomegaly (principal); I35.8 Other nonrheumatic aortic valve disorders; I31.39 Other pericardial effusion (noninflammatory); I48.91 Unspecified atrial fibrillation
CPT/HCPCS: 93306